=== PATIENT | female | born 1955 | race Caucasian/White ===

== ENCOUNTER 2021-12-13 13:01 | Outpatient (REF) | payer MEDICARE, SELFPAY ==
--- NOTE | ~2021-12-13 | MM_ITS ---
EXAMINATION: BONE DENSITOMETRY CLINICAL INDICATION: Osteoporosis. COMPARISON: None (current study represents initial baseline exam). TECHNIQUE: Using a [employer]HSENSORS DXA System (software version: 13.1) manufactured by [employer], dual-energy x-ray absorptiometry was performed of the lumbar spine and left hip. The images are of good technical quality. Summary results are attached. FINDINGS: AP SPINE L1-L4 (excluding L3): The data of L1-L4 has been changed to exclude the L3 vertebral body, because degenerative changes at this level may cause overestimation of lumbar spine density. BMD 0.827 g/cm2, Z-score -2.0, T-score -2.9, osteoporosis. LEFT FEMUR, NECK: BMD 0.682 g/cm2, Z-score -1.5, T-score -2.6, osteoporosis. LEFT FEMUR, TOTAL: BMD 0.848 g/cm2, Z-score -0.5, T-score -1.3, osteopenia. IDENTIFIED RISK FACTORS: Menopause, hysterectomy, bilateral oophorectomy. HISTORY OF FRACTURE: None listed. MEDICATIONS: None listed. MM/XR DEXA axial skeleton IMPRESSION: 1. DIAGNOSIS: Osteoporosis based on the lowest T-score value of -2.9 in the lumbar spine applying World Health Organization criteria. 2. 10-YEAR FRACTURE RISK PREDICTION, FRAX: According to the guidelines, FRAX calculation should only be performed on patients in the osteopenia bone density category. 3. Treatment Recommendations: NOF guidelines recommend consideration for treatment in postmenopausal women and men age 50 and older presenting with the following: -A hip or vertebral (clinical or morphometric) fracture. -T-score less than or equal to -2.5 at the femoral neck or spine after appropriate evaluation to exclude secondary causes. -Low bone mass at the hip or spine and a 10-year fracture probability by FRAX of greater than or equal to 3% for hip fracture or greater than or equal to 20% for major osteoporotic fracture based on the [place] adapted WHO algorithm. 4. Other Recommendations: All treatment decisions require clinical judgment and consideration of individual patient factors, including patient preferences, comorbidities, previous drug use, risk factors not captured in the FRAX model (e.g. frailty, falls, vitamin D deficiency, increased bone turnover, interval significant decline in bone density) and possible under or overestimation of fracture risk by FRAX. Additional medical evaluation for secondary cause of low bone mineral density may be appropriate. FUTURE SCAN RECOMMENDATION: People with diagnosed cases of osteoporosis or at high risk for fracture should have regular bone mineral density tests. For patients eligible for Medicare, routine testing is allowed once every 2 years. The testing frequency can be increased to one year for patients who have rapidly progressing disease, those who are receiving or discontinuing medical therapy to restore bone mass, or have additional risk factors.
--- NOTE | ~2021-12-13 | MM_ITS ---
EXAMINATION: MM SCREENING DIGITAL BREAST TOMOSYNTHESIS, BILATERAL CLINICAL INFORMATION: Screening. Asymptomatic. The lifetime risk of breast cancer based on the Tyrer-Cuzick Model is 3.9%. COMPARISON: Mammography: September 19, 2017 and studies dating back to August 31, 2015 TECHNIQUE: Digital breast tomosynthesis is performed in both the craniocaudal and mediolateral oblique views along with computer-aided detection (CAD). Synthesized 2D images are generated from the tomosynthesis. FINDINGS: There are scattered areas of fibroglandular density (ACR BI-RADS breast composition Category b). There are no significant masses, abnormal calcifications, or other abnormalities. MM/MM tomosynthesis screening BI IMPRESSION: There are no significant changes from prior study. ASSESSMENT: BI-RADS 1: Negative RECOMMENDATION: Routine annual mammography screening. This patient's information was entered into a reminder system with a target due date for their next mammogram.
== END 2021-12-13 13:02 | disposition home or self-care (01) ==
LOC: HO.MAMMO 13:01
PROVIDERS: Visit Provider Internal Medicine Geriatric Medicine
DX: Z12.31 Encounter for screening mammogram for malignant neoplasm of breast (principal); Z13.820 Encounter for screening for osteoporosis; Z78.0 Asymptomatic menopausal state; M81.0 Age-related osteoporosis without current pathological fracture
CPT/HCPCS: 77063; 77067; 77080

== ENCOUNTER 2022-12-14 12:57 | Outpatient (REF) | payer MEDICARE, SELFPAY ==
--- NOTE | ~2022-12-14 | MM_ITS ---
EXAMINATION: MM SCREENING DIGITAL BREAST TOMOSYNTHESIS, BILATERAL CLINICAL INFORMATION: Screening. Asymptomatic. The lifetime risk of breast cancer based on the Tyrer-Cuzick Model is 3.8%. COMPARISON: Mammography: December 13, 2021 and studies dating back to August 31, 2015 TECHNIQUE: Digital breast tomosynthesis is performed in both the craniocaudal and mediolateral oblique views along with computer-aided detection (CAD). Synthesized 2D images are generated from the tomosynthesis. FINDINGS: There are scattered areas of fibroglandular density (ACR BI-RADS breast composition Category b). There are no significant masses, abnormal calcifications, or other abnormalities. MM/MM tomosynthesis screening BI IMPRESSION: No significant changes from prior exam. ASSESSMENT: BI-RADS 1: Negative RECOMMENDATION: Routine annual mammography screening. This patient's information was entered into a reminder system with a target due date for their next mammogram.
== END 2022-12-14 12:58 | disposition home or self-care (01) ==
LOC: HO.MAMMO 12:57
PROVIDERS: PCP Internal Medicine Geriatric Medicine; Visit Provider Internal Medicine Geriatric Medicine
DX: Z12.31 Encounter for screening mammogram for malignant neoplasm of breast (principal)
CPT/HCPCS: 77063; 77067

== ENCOUNTER 2023-12-18 10:22 | Outpatient (REF) | payer OTHER, SELFPAY | END 2023-12-18 10:23 | disposition home or self-care (01) | LOC: HO.MAMMO 10:22 | PROVIDERS: PCP Internal Medicine Geriatric Medicine; Visit Provider Internal Medicine Geriatric Medicine | DX: Z12.31 Encounter for screening mammogram for malignant neoplasm of breast (principal) | CPT/HCPCS: 77063; 77067 ==

== ENCOUNTER → 2023-12-18 10:45 | Outpatient (BNV) | payer OTHER, SELFPAY | PROVIDERS: PCP Internal Medicine Geriatric Medicine; Visit Provider Radiology Diagnostic Radiology | DX: Z12.31 Encounter for screening mammogram for malignant neoplasm of breast (principal) | CPT/HCPCS: 77063; 77067 ==

== ENCOUNTER 2024-01-08 13:37 | Outpatient (REF) | payer OTHER, SELFPAY ==
--- NOTE | ~2024-01-08 | XR_ITS ---
EXAMINATION: XR CHEST 2 VIEWS CLINICAL INFORMATION: Cough of 2 weeks' duration; question pneumonia. COMPARISON: None. TECHNIQUE: Frontal and lateral views of the chest were obtained. The frontal view is somewhat rotated. FINDINGS: The heart, great vessels, pulmonary vasculature and mediastinum are normal, accounting for rotation. The lungs show no focal infiltrate, effusion or pneumothorax. There is no acute osseous abnormality. XR/XR chest 2V IMPRESSION: No active cardiopulmonary disease.
== END 2024-01-08 13:38 | disposition home or self-care (01) ==
LOC: HO.HHCX 13:37
PROVIDERS: Visit Provider Nurse Practitioner Family
DX: R05.9 Cough, unspecified (principal); R06.2 Wheezing
CPT/HCPCS: 71046

== ENCOUNTER 2024-01-22 11:49 | Outpatient (REF) | payer OTHER, SELFPAY ==
[2024-01-22 13:14] LABS: MANUAL DIFF FLAG NO
[2024-01-22 13:30] LABS: Basophils Percent Auto 0.2 % (0-2); Eosinophils Absolute Auto 0.2 X10*3/uL (0.0-0.4); Eosinophils Percent Auto 2.8 % (0-4); Hematocrit 34.7 % (37.0-47.0); Hemoglobin 11.1 g/dl (12.0-16.0); Imm Gran Abs Auto 0.02 X10*3/uL (0.00-0.03); Imm Gran Pct Auto 0.4 % (0.0-0.4); Lymphocytes Absolute Auto 0.9 X10*3/uL (1.2-4.9); Lymphocytes Percent Auto 16.2 % (20-40); Mean Corpuscular Hemoglobin 29.5 pg (27.0-33.0); Mean Corpuscular Volume 92.3 fL (80.0-98.0); Mean Platelet Volume 10.3 fL (9.4-12.3); Monocytes Absolute Auto 0.6 X10*3/uL (0.1-1.2); Monocytes Percent Auto 11.8 % (2-11); Neutrophils Absolute Auto 3.7 x10*3/uL (2.0-8.3); Neutrophils Percent Auto 68.6 % (45-73); Platelet Count 286 X10*3/uL (160-400); Red Blood Count 3.76 X10*6/uL (4.20-5.50); White Blood Count 5.4 X10*3/uL (4.8-10.8)
[2024-01-22 14:00] LABS: Anion Gap 11 (12-20); Blood Urea Nitrogen 9 mg/dL (9-16); Calcium 9.2 mg/dL (8.4-10.2); Carbon Dioxide 29 mmol/L (22-29); Chloride 103 mmol/L (96-108); Estimated Glomerular Filt Rate > 60; Glucose Random 103 mg/dL (60-115); Sodium 139 mmol/L (135-145)
== END 2024-01-22 11:50 | disposition home or self-care (01) ==
LOC: HO.HHCL 11:49
PROVIDERS: Visit Provider Internal Medicine Geriatric Medicine
DX: R05.2 Subacute cough (principal); R06.2 Wheezing
CPT/HCPCS: 36415; 80048; 85025

== ENCOUNTER 2024-04-13 09:29 | Outpatient (AMB) | payer OTHER, SELFPAY ==
--- NOTE | 2024-04-13 09:49 | MHC.OFFVIS ---
Vital Signs 04/13/24 11:04 04/13/24 11:08 Weight 199 lb 199 lb BP 141/75 H 141/75 H Blood Pressure Location Rt brachial Position Sitting Pulse 92 92 Intake Visit Reasons: Abdominal hernia Intake Note: Patient referred by PCP Dr. Heredia for abdominal hernia. Reports present for secholeveral months. Hx of lap Patient c/o: Feels a lump in the area specially with heavy lifting, onset aprox one year, reducible, denies n/v/d/c, no prior imaging, no other concerns Training Assistant Required: No Accompanied by: Self / Same As Patient Allergies oxycodone Allergy (Intermediate, Verified 04/13/24 09:53) Nausea and Vomiting aspirin Allergy (Mild, Verified 04/13/24 09:53) Hives lisinopril Allergy (Mild, Verified 04/13/24 09:53) Cough morphine Allergy (Mild, Verified 04/13/24 09:53) Wheezing tramadol Allergy (Mild, Verified 04/13/24 09:53) Unknown HPI Comments Details: Patient presents with a proximally 1 year history of right subcostal abdominal pain. She is status post laparoscopic cholecystectomy reapproximated years ago in [place]. She feels that she has a lump or swelling in the right subcostal area and is here to evaluate for possible hernia. She has otherwise tolerating a diet, having regular bowel habits. No other GI issues or complaints Chart was reviewed and patient evaluated [facility] Medical History Urticaria History of COVID-19 (~01/22/24) Essential hypertension MICHAEL-inhibitor cough Osteoarthritis of knee Urine incontinence Osteoporosis Low back pain, unspecified Obesity Depression Anxiety Surgical History Hx of total knee arthroplasty (~09/23/23) Physical Exam Vital Signs: Last Vital Signs Pulse 92 04/13/24 11:08 BP 141/75 H 04/13/24 11:08 Chest Other: Chest breath sounds bilateral GI Other: Abdomen is soft and benign. Moderately corpulent. No obvious ventral or subcostal hernias demonstrated. Well-healed laparoscopic scars. Assessment & Plan Assessment & Plan (1) Abdominal wall pain: Code(s): R10.9 - Unspecified abdominal pain Category: Surgical Plan Because of the prolonged nature of the patient's symptoms over 1 year's time, and her moderately sized abdomen, which may limit physical exam of an occult hernia, the current plan is arrangements CT scan abdomen pelvis indirect further interventions/studies based on these results. This was explained to the patient. She will see me once the scan is completed. All questions answered. Coding Level of Care Code New Pt Level 4 (12391) Diagnoses Abdominal wall pain R10.9
[2024-04-13 11:04] VITALS: BP 141/75; PULSE 92
[2024-04-13 11:08] VITALS: BP 141/75; PULSE 92
== END 2024-04-13 11:28 | disposition home or self-care (01) ==
PROVIDERS: PCP Internal Medicine Geriatric Medicine; Visit Provider Surgery
DX: R10.9 Unspecified abdominal pain (principal)
CPT/HCPCS: 99203

== ENCOUNTER → 2024-04-13 09:29 | Outpatient (BNVA) | payer OTHER, SELFPAY | PROVIDERS: PCP Internal Medicine Geriatric Medicine; Visit Provider Surgery | DX: R10.9 Unspecified abdominal pain (principal); Z90.49 Acquired absence of other specified parts of digestive tract | CPT/HCPCS: 36415; 85025; 99202 ==

== ENCOUNTER 2024-04-13 11:48 | Outpatient (REF) | payer OTHER, SELFPAY ==
[2024-04-13 13:34] LABS: MANUAL DIFF FLAG NO
[2024-04-13 13:44] LABS: Basophils Percent Auto 0.5 % (0-2); Eosinophils Absolute Auto 0.2 X10*3/uL (0.0-0.4); Eosinophils Percent Auto 2.3 % (0-4); Hematocrit 35.3 % (37.0-47.0); Hemoglobin 11.4 g/dl (12.0-16.0); Imm Gran Abs Auto 0.05 X10*3/uL (0.00-0.03); Imm Gran Pct Auto 0.7 % (0.0-0.4); Lymphocytes Absolute Auto 1.5 X10*3/uL (1.2-4.9); Lymphocytes Percent Auto 20.1 % (20-40); Mean Corpuscular HGB Conc 32.3 g/dl (31.0-35.0); Mean Corpuscular Hemoglobin 30.3 pg (27.0-33.0); Mean Corpuscular Volume 93.9 fL (80.0-98.0); Mean Platelet Volume 10.7 fL (9.4-12.3); Monocytes Absolute Auto 0.8 X10*3/uL (0.1-1.2); Monocytes Percent Auto 10.6 % (2-11); Neutrophils Absolute Auto 4.9 x10*3/uL (2.0-8.3); Neutrophils Percent Auto 65.8 % (45-73); Platelet Count 314 X10*3/uL (160-400); Red Blood Count 3.76 X10*6/uL (4.20-5.50); Red Cell Distribution Width 14.4 % (11.0-16.0); White Blood Count 7.5 X10*3/uL (4.8-10.8)
== END 2024-04-13 11:49 | disposition home or self-care (01) ==
LOC: HO.HHCL 11:48
PROVIDERS: Visit Provider Internal Medicine Geriatric Medicine
DX: Z13.89 Encounter for screening for other disorder (principal)
CPT/HCPCS: 36415; 85025

== ENCOUNTER 2024-06-08 06:24 | Outpatient (REF) | payer OTHER, SELFPAY ==
--- NOTE | ~2024-06-08 | CT_ITS ---
EXAMINATION: CT ABDOMEN AND PELVIS WITH CONTRAST CLINICAL INFORMATION: Unspecified abdominal pain COMPARISON: None available. TECHNIQUE: Multidetector volumetric images were obtained from the superior aspect of the liver through the pubic symphysis following administration 85 mL of Omnipaque 350 intravenous contrast. Sagittal and coronal reformatted images were obtained on the technologist's workstation. This CT examination was performed using dose optimization techniques as appropriate, variously including the following: *Automated exposure control *Adjustment of mA and/or kV according to patient size (this includes techniques or standardized protocols for targeted exams where dose is matched to indication/reason for exam; i.e. extremities or head) *Use of iterative reconstruction technique DLP: 620 mGy-cm FINDINGS: Visualized lung bases demonstrate mild dependent atelectasis. The liver is enlarged and demonstrates diffusely decreased attenuation. The gallbladder is surgically absent. There is mild fatty atrophy of the pancreas. The spleen is normal in size. Small inferior splenule. There is a 2.6 cm nonspecific right adrenal lesion. The left adrenal gland is unremarkable. Symmetrically enhancing kidneys. There is no hydronephrosis of either kidney. Debris-filled stomach. Normal caliber loops of small and large bowel. Mild colonic diverticulosis without CT evidence to suggest active diverticulitis. Normal appendix. Normal caliber abdominal aorta. No retroperitoneal lymphadenopathy. The bladder is normal in appearance. Uterus is surgically absent. No gross free pelvic fluid. No inguinal lymphadenopathy. Degenerative changes of the spine. CT/CT abdomen pelvis w IV con IMPRESSION: 1. Hepatomegaly with diffusely decreased liver attenuation suggesting hepatic steatosis. Correlation with liver enzymes recommended. 2. Mild colonic diverticulosis without CT evidence to suggest active diverticulitis. 3. 2.6 cm nonspecific right adrenal lesion. This can be further evaluated with adrenal protocol CT imaging as clinically indicated. Fleischner guidelines were followed.
[2024-06-08] MEDS: iohexoL 350 MG/ML 100 ML INFUS..BTL 85 ML IV (08:51)
[2024-06-08] MEDS: Barium Sulfate Oral (Berry) 450 ML ORAL.SUSP 900 ML PO (08:52)
[2024-06-10 11:01] LABS: Creatinine POC 0.5 mg/dL (0.5-1.4); GFR POC > 60
== END 2024-06-08 06:25 | disposition home or self-care (01) ==
LOC: HO.CT 06:24
PROVIDERS: PCP Internal Medicine Geriatric Medicine; Visit Provider Surgery
DX: R10.9 Unspecified abdominal pain (principal); K43.9 Ventral hernia without obstruction or gangrene
CPT/HCPCS: 74177; 82565; Q9967

== ENCOUNTER 2024-06-17 09:15 | Outpatient (AMB) | payer OTHER, SELFPAY ==
--- NOTE | 2024-06-17 09:15 | MHC.OFFVIS ---
Vital Signs 06/17/24 09:21 Weight 196 lb BP 147/74 H Blood Pressure Location Rt brachial Position Sitting Pulse 89 Intake Visit Reasons: CT scan results, following ventral hernia Intake Note: Patient here to discuss Abd/pelvis CT scan results from 06-08-24. Cuff Turner Required: Yes Accompanied by: Self / Same As Patient Allergies oxycodone Allergy (Intermediate, Verified 06/17/24 09:20) Nausea and Vomiting aspirin Allergy (Mild, Verified 06/17/24 09:20) Hives lisinopril Allergy (Mild, Verified 06/17/24 09:20) Cough morphine Allergy (Mild, Verified 06/17/24 09:20) Wheezing tramadol Allergy (Mild, Verified 06/17/24 09:20) Unknown HPI Comments Details: Patient presents for follow-up. CT scan demonstrated no evidence of abdominal wall pathology. Incidental finding was of an adrenal mass. Patient was symptoms are essentially status quo. But she is tolerating her diet, she is having regular bowel habits. She has no activity restrictions. [facility] Medical History Urticaria History of COVID-19 (~01/22/24) Essential hypertension MICHAEL-inhibitor cough Osteoarthritis of knee Urine incontinence Osteoporosis Low back pain, unspecified Obesity Depression Anxiety Surgical History Hx of total knee arthroplasty (~09/23/23) Physical Exam Vital Signs: Last Vital Signs Pulse 89 06/17/24 09:21 BP 147/74 H 06/17/24 09:21 GI Other: Abdomen soft, moderately corpulent, benign. Right upper quadrant mild tenderness, Again no obvious hernia demonstrated and this was confirmed by CT scan. Assessment & Plan Assessment & Plan (1) Abdominal wall pain: Code(s): R10.9 - Unspecified abdominal pain Category: Surgical (2) Adrenal mass: Code(s): E27.8 - Other specified disorders of adrenal gland Category: Surgical Plan Incidental finding of an adrenal mass. From a surgical standpoint, patient is stable in no acute surgical issues. Arrangements were made for endocrine consultation regarding adrenal mass. Arrangements were made for this. Coding Level of Care Code Est Pt Level 4 (02781) Diagnoses Abdominal wall pain R10.9 Adrenal mass E27.8
[2024-06-17 09:21] VITALS: BP 147/74; PULSE 89
== END 2024-06-17 09:34 | disposition home or self-care (01) ==
PROVIDERS: PCP Internal Medicine Geriatric Medicine; Visit Provider Surgery
DX: R10.9 Unspecified abdominal pain (principal); E27.8 Other specified disorders of adrenal gland
CPT/HCPCS: 99213

== ENCOUNTER → 2024-06-17 09:15 | Outpatient (BNVA) | payer OTHER, SELFPAY | PROVIDERS: PCP Internal Medicine Geriatric Medicine; Visit Provider Surgery | DX: R10.9 Unspecified abdominal pain (principal); E27.8 Other specified disorders of adrenal gland | CPT/HCPCS: 99212 ==

== ENCOUNTER 2024-06-24 09:40 | Outpatient (AMB) | payer OTHER, SELFPAY ==
--- NOTE | 2024-06-24 09:42 | MHC.OFFVIS ---
Vital Signs 06/24/24 09:43 Weight 196 lb BP 128/74 Blood Pressure Location Lt brachial Position Sitting Pulse 85 Pulse Source Pulse Oximeter Intake Visit Reasons: Other specified disorders of adrenal gland/LVM Intake Note: New patient present today for other specified disorders of adrenal gland. Computer Technology Teacher Required: Yes Computer Technology Teacher Language: Parts Control Clerk Services: Computer Technology Teacher Present Computer Technology Teacher Name: Noemi Information Interpreted: non-clinical & clinical Accompanied by: Self / Same As Patient Allergies oxycodone Allergy (Intermediate, Verified 06/24/24 09:47) Nausea and Vomiting aspirin Allergy (Mild, Verified 06/24/24 09:47) Hives lisinopril Allergy (Mild, Verified 06/24/24 09:47) Cough morphine Allergy (Mild, Verified 06/24/24 09:47) Wheezing tramadol Allergy (Mild, Verified 06/24/24 09:47) Unknown Medication List - Last Reconciled 06/24/24 by Miya Rachel MD albuterol sulfate 90 mcg/actuation 2 inhalations inhalation Q4H PRN alendronate 70 mg PO QWEEK amlodipine 5 mg PO DAILY clotrimazole 1% 1 appl topical BID famotidine 20 mg PO BID fluticasone furoate 50 mcg/actuation inhalation mometasone 100 mcg/actuation (Asmanex HFA) 2 puffs inhalation BID montelukast 10 mg PO BEDTIME omeprazole 20 mg PO BID triamcinolone acetonide 0.1% 1 appl topical BID HPI Comments Details: 69-year-old female coming in today for initial evaluation of adrenal incidentaloma. Past medical history significant for Osteoporosis, Obesity, Depression and Anxiety, hypertension. May [address] scan of abd for abd pain showed 2.6 cm right adrenal adenoma Does complain of palpitations, intermittent, usually with anxiety Denies episodes of concurrent pallor, headaches, diaphoresis, pallor HTN 3 years, doesnt check at home but in clinic today no easy bruising, no proximal muscle weakness no diabetes mellitus, no fractures but has osteoporosis on fosamax no hirsuitism no acne Thinks she has gained weight cant quantify Family history Father: lung cancer no MT or stroke Past surgical history Lap cholecystectomy Knee arthroplasty Social history No smoking No alcohol No drug use 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 Pulmonary: No SOB GI:has inetrmittent chronic abdominal pain, no nausea or vomiting, no anorexia, no blood in stool : no burning micturition, dysuria or increase in urinary frequency Neurologic: No dizziness, no weakness in extremities MSK: has back pain Physical Exam Vital Signs: Last Vital Signs Pulse 85 06/24/24 09:43 BP 128/74 06/24/24 09:43 Const Other: General: sitting comfortably in no acute distress HEENT: normocephalic/atraumatic,, moist oral mucosa Neck: supple, symmetrical, no thyromegaly , has dorsocervical butno supraclavicular fat pads Cardiac: normal heart sounds Pulm: normal breath sounds B/L, no added breath sounds Abd: not distended, no tenderness, no stria Extremities: no edema, no signs of myxedema Neuro: AAO x3, Speech: normal, no facial droop, moving all 4 extremities Skin: no rash Foot exam: intact sensation to monofilament, intact pulses, intact vibration Results Reviewed Results Reviewed: Laboratory Tests 01/22/24 11:53 Sodium 139 Potassium 4.0 Creatinine 0.62 Estimated GFR > 60 CT ABDOMEN AND PELVIS WITH CONTRAST May 2024 CLINICAL INFORMATION: Unspecified abdominal pain COMPARISON: None available. TECHNIQUE: Multidetector volumetric images were obtained from the superior aspect of the liver through the pubic symphysis following administration 85 mL of Omnipaque 350 intravenous contrast. Sagittal and coronal reformatted images were obtained on the technologist's workstation. This CT examination was performed using dose optimization techniques as appropriate, variously including the following: *Automated exposure control *Adjustment of mA and/or kV according to patient size (this includes techniques or standardized protocols for targeted exams where dose is matched to indication/reason for exam; i.e. extremities or head) *Use of iterative reconstruction technique DLP: 620 mGy-cm FINDINGS: Visualized lung bases demonstrate mild dependent atelectasis. The liver is enlarged and demonstrates diffusely decreased attenuation. The gallbladder is surgically absent. There is mild fatty atrophy of the pancreas. The spleen is normal in size. Small inferior splenule. There is a 2.6 cm nonspecific right adrenal lesion. The left adrenal gland is unremarkable. Symmetrically enhancing kidneys. There is no hydronephrosis of either kidney. Debris-filled stomach. Normal caliber loops of small and large bowel. Mild colonic diverticulosis without CT evidence to suggest active diverticulitis. Normal appendix. Normal caliber abdominal aorta. No retroperitoneal lymphadenopathy. The bladder is normal in appearance. Uterus is surgically absent. No gross free pelvic fluid. No inguinal lymphadenopathy. Degenerative changes of the spine. CT/CT abdomen pelvis w IV con IMPRESSION: 1. Hepatomegaly with diffusely decreased liver attenuation suggesting hepatic steatosis. Correlation with liver enzymes recommended. 2. Mild colonic diverticulosis without CT evidence to suggest active diverticulitis. 3. 2.6 cm nonspecific right adrenal lesion. This can be further evaluated with adrenal protocol CT imaging as clinically indicated. Fleischner guidelines were followed. Assessment & Plan Assessment & Plan (1) Adrenal incidentaloma: Code(s): E27.8 - Other specified disorders of adrenal gland Category: Medical Plan: 69-year-old female coming in today for initial evaluation right adrenal incidentaloma diagonals 9 CT scan in 05/30/2024 when she was undergoing evaluation for abdominal pain. Our first concern is to be sure that this is not an adrenal cortical carcinoma. ?Fortunately adrenal cortical carcinomas are exceedingly rare. ?However they do carry with them a very poor prognosis.?Given clinical history with no deterioration in overall health; I have low suspicion for adrenocortical carcinoma to start with. ?Our next step will be to repeat the imaging of his adrenal gland with?adrenal washout protocol to comment on Hounsfield units and washout. ?? Another concern of adrenal masses is that they might be metastatic disease from another primary malignancy. ?This seems unlikely in her case. ?She is a lifelong non-smoker. ?A renal cancer which can metastasize to the adrenal glands probably would have been identified on his initial imaging study. ?Usually metastatic disease to the adrenal glands goes to both adrenal glands. ?Finally there is no evidence of breast cancer which?may?metastasize to the adrenal glands?as well. ? Most adrenal masses are noncancerous or benign adrenal adenomas. ?However they can occasionally be functional and the hormones that are produced can cause clinical problems.??She has not been screened for any hormonal excess; although low clinical suspicion for pheochromocytoma; given the adrenal adenoma in question is greater than 1 cm and we currently do not have Hounsfield units reading on it; I will err on the side of caution and screen with plasma free metanephrines with her blood work today. ? He does not have hypertension or history of hypokalemia and hence at this time aldosterone and plasma renin activity testing may be deferred. ? We will check baseline labs of cortisol, ACTH, DHEAS and also do 1 mg overnight dexamethasone suppression test. she has no clinical features of Tin syndrome. She does have osteoporosis, however no recent fractures. Her blood pressure is well controlled. No history of diabetes. ? The greatest likelihood is that this will be a nonfunctional benign adrenal adenoma that does not need to be removed. ?However we want to be careful that we have excluded all the other possibilities?first.? Plan: -ordered cause disorder, acth, DHEA-S, 1 mg overnight dexamethasone suppression test -ordered plasma metanephrines, normetanephrines, aldosterone, renin, BMP -ordered CT scan with adrenal protocol -follow-up in 8 weeks once testing is done ? Thank you for the consultation. ?Endocrinology team will continue to follow; please call with any questions. Plan see above Orders: Orders DHEA Sulfate Today E27.8 - Other specified disorders of adrenal gland Cortisol Random Today E27.8 - Other specified disorders of adrenal gland Renin Today E27.8 - Other specified disorders of adrenal gland Metanephrines, Plasma Today E27.8 - Other specified disorders of adrenal gland Aldosterone Today E27.8 - Other specified disorders of adrenal gland Basic Metabolic Panel Today E27.8 - Other specified disorders of adrenal gland Adrenocorticotropic Hormone Today E27.8 - Other specified disorders of adrenal gland CT adrenal wo/w IV con Today E27.8 - Other specified disorders of adrenal gland Cortisol Random 06/26/24 E27.8 - Other specified disorders of adrenal gland Dexamethasone 06/26/24 E27.8 - Other specified disorders of adrenal gland Medications: New dexamethasone Take 1 pill at 11 pm and go for blood work next morning at 8 AM 1 mg PO ONCE 1 tab 0RF NS Patient Instructions: Por favor hazte an?lisis de romero hoy y luego, en mindy fecha posterior, completar la prueba de supresi?n con dexametasona, que es el an?lisis de romero con la p?ldora. Prueba de supresi?n con dexametasona Me gustar?a que me hicieran mindy prueba de supresi?n con dexametasona para descartar el s?ndrome de Tin. Miranda? mindy pastilla de dexametasona de 1 mg a las 11 p.m. y luego le extraer?n romero para medir el cortisol a las 8 a.m. de la ma?anjel siguiente. Es importante asegurarse de miranda la dexametasona a las 11 p.m. y hacerse el an?lisis de romero lo m?s cerca posible de las 8 a.m. tambi?n hacer tomograf?a computarizada hacer un seguimiento despu?s de la prueba para discutir los resultados In [place] Please do blood work today and then at a later date complete the dexamethasone suppression test which is the blood work with the pill Dexamethasone suppression test I would like you to do a dexamethasone suppression test to rule out Cushings syndrome. You will take a 1 mg pill of dexamethasone at 11 PM and then have a blood draw for cortisol at 8AM the next morning. It is important to make sure you take the dexamethasone at 11 PM and have the blood test as close to 8AM as possible. also do CT scan follow up after testing to discuss results Coding Level of Care Code New Pt Level 4 (04850) Diagnoses Adrenal incidentaloma E27.8
[2024-06-24 09:43] VITALS: BP 128/74; PULSE 85
== END 2024-06-24 10:33 | disposition home or self-care (01) ==
PROVIDERS: PCP Internal Medicine Geriatric Medicine; Visit Provider Student in an Organized Health Care Education/Training Program
DX: E27.8 Other specified disorders of adrenal gland (principal)
CPT/HCPCS: 99204

== ENCOUNTER → 2024-06-24 09:40 | Outpatient (BNVA) | payer OTHER, SELFPAY | PROVIDERS: PCP Internal Medicine Geriatric Medicine; Visit Provider Student in an Organized Health Care Education/Training Program | DX: E27.8 Other specified disorders of adrenal gland (principal) | CPT/HCPCS: 99202 ==

== ENCOUNTER 2024-07-02 13:24 | Outpatient (AMB) | payer OTHER, SELFPAY ==
--- NOTE | 2024-07-02 13:28 | A.OFFVIS_ITS ---
Vital Signs 07/02/24 13:30 Height 4 ft 11 in Weight 198 lb BMI 40.0 BP 128/70 Blood Pressure Location Lt brachial Position Sitting Pulse 89 Pulse Source Pulse Oximeter Pulse Oximetry (%) 99 Oxygen Delivery Method Room Air Intake Visit Reasons: chronic cough Adjutant General Required: No Allergies oxycodone Allergy (Intermediate, Verified 07/02/24 13:31) Nausea and Vomiting aspirin Allergy (Mild, Verified 07/02/24 13:31) Hives lisinopril Allergy (Mild, Verified 07/02/24 13:31) Cough morphine Allergy (Mild, Verified 07/02/24 13:31) Wheezing tramadol Allergy (Mild, Verified 07/02/24 13:31) Unknown HPI Comments Details: The patient is here for pulmonary evaluation. The patient is a 69 year woman with a known history of in adrenal adenoma who presents here after developing worsening cough. The patient states that several months ago she developed a viral syndrome. After she continued having a cough. The cough is moderate severity. Was congested in nature with yellow phlegm. She had been evaluated about 4 months ago and she was given antibiotics in addition to respiratory inhalers. Although only partially helpful. In the meantime she did have a chest x-ray which I personally reviewed demonstrating no acute disease. She has not had any pulmonary function studies. She is not aware of any allergies and she does not have any pets. No significant changes in her household. On examination she does have some rhonchi. Specially when she coughs. She does have an about of bronchitis. It may be asthmatic bronchitis or reactive airway disease. Will go start her on maintenance therapy to see if we can improve her symptoms and treat her with doxycycline case she has a smoldering infection. Will have her follow-up in 2-3 months after her PFTs. [facility] Medical History (Updated 07/02/24 @ 23:04 by Fabricio Lauren MD) Dyspnea Chronic cough Adrenal incidentaloma Urticaria History of COVID-19 (~01/22/24) Essential hypertension MICHAEL-inhibitor cough Osteoarthritis of knee Urine incontinence Osteoporosis Low back pain, unspecified Obesity Depression Anxiety Surgical History Hx of total knee arthroplasty (~09/23/23) Review of Systems Const Denies fever(s) Eyes Reports no additional complaints ENT Reports nasal congestion and Reports nasal discharge Card Denies chest pain, Denies palpitations and Reports dyspnea on exertion Resp Reports cough, Reports dyspnea on exertion and Reports wheezing GI Denies bloating Musc Reports no additional complaints Skin/Breast Denies rash Endo Denies palpitations Jose L/Lymph Denies lymphadenopathy Aller/Immun Reports wheezing Physical Exam Vital Signs: Last Vital Signs Pulse 89 07/02/24 13:30 BP 128/70 07/02/24 13:30 Pulse Ox 99 07/02/24 13:30 Oxygen Delivery Method Room Air 07/02/24 13:30 BMI result Body Mass Index 40.0 Const General: comfortable HEENT Head: Yes normocephalic Neck Neck: Yes supple Chest Chest palpation & inspection: normal inspection of the chest Resp Effort & Inspection: normal respiratory effort and prolonged expiratory phase Auscultation: no rales, no rhonchi, no wheezes and diminished lung sounds Cardio Heart sounds: S1 normal heart sound present and S2 normal heart sound present GI Palpation (GI): Soft to palpation Skin General skin exam: no rashes or lesions noted Extrem General: Yes no clubbing, cyanosis or edema Assessment & Plan Assessment & Plan (1) Chronic cough: Code(s): R05.3 - Chronic cough Category: Medical (2) Dyspnea: Code(s): R06.00 - Dyspnea, unspecified Category: Medical Qualifiers: Dyspnea type: dyspnea on exertion Qualified Code(s): R06.09 - Other forms of dyspnea (3) Bronchitis: Code(s): J40 - Bronchitis, not specified as acute or chronic Category: Medical Plan Start Symbicrt VANIA as needed start doxycycline PFTs F/U 2-3 months Orders: Orders PFT pulmonary function test Today J40 - Bronchitis, not specified as acute or chronic Medications: New budesonide-formoterol 160-4.5 mcg/actuation (Symbicort) 2 puffs inhalation BID 30 days 10.2 grams 11RF J44.89 - Other specified chronic obstructive pulmonary disease doxycycline hyclate 100 mg PO BID 10 days 20 caps 0RF Coding Level of Care Code New Pt Level 4 (24010) Diagnoses Chronic cough R05.3 Dyspnea on exertion R06.09 Dyspnea type: dyspnea on exertion Bronchitis J40 Time Spent (min) 30
[2024-07-02 13:30] VITALS: BP 128/70; PULSE 89; O2SAT 99; BMI 40.0
== END 2024-07-02 13:49 | disposition home or self-care (01) ==
PROVIDERS: PCP Internal Medicine Geriatric Medicine; Referring Provider Internal Medicine Geriatric Medicine; Visit Provider Hospitalist
DX: R05.3 Chronic cough (principal); R06.09 Other forms of dyspnea; J40 Bronchitis, not specified as acute or chronic
CPT/HCPCS: 99204

== ENCOUNTER → 2024-07-02 13:24 | Outpatient (BNVA) | payer OTHER, SELFPAY | PROVIDERS: PCP Internal Medicine Geriatric Medicine; Referring Provider Internal Medicine Geriatric Medicine; Visit Provider Hospitalist | DX: J40 Bronchitis, not specified as acute or chronic (principal); J44.89 Other specified chronic obstructive pulmonary disease; R06.00 Dyspnea, unspecified | CPT/HCPCS: 99202 ==

== ENCOUNTER 2024-07-14 08:19 | Outpatient (REF) | payer OTHER, SELFPAY ==
[2024-07-14 10:58] LABS: Anion Gap 13 (12-20); Blood Urea Nitrogen 18 mg/dL (9-16); Calcium 9.5 mg/dL (8.4-10.2); Carbon Dioxide 27 mmol/L (22-29); Chloride 103 mmol/L (96-108); Estimated Glomerular Filt Rate > 60; Glucose Random 104 mg/dL (60-115); Potassium 3.7 mmol/L (3.3-5.1); Sodium 139 mmol/L (135-145)
[2024-07-14 11:09] LABS: Cortisol Random 8.7 ug/dL
[2024-07-15 18:44] LABS: DHEA Sulfate 58 mcg/dL (9-118)
[2024-07-17 09:59] LABS: Adrenocorticotropic Hormone 11 pg/mL (6-50)
[2024-07-20 08:54] LABS: Metanephrine, Free <25 pg/mL (<=57); Normetanephrines, Free 90 pg/mL (<=148); Total Metanephrine, Free 90 pg/mL (<=205)
[2024-07-20 13:54] LABS: Renin 1.02 ng/mL/h (0.25-5.82)
[2024-07-29 14:59] LABS: Dexamethasone <20 ng/dL
== END 2024-07-14 08:20 | disposition home or self-care (01) ==
LOC: HO.LAB 08:19
PROVIDERS: PCP Internal Medicine Geriatric Medicine; Visit Provider Student in an Organized Health Care Education/Training Program
DX: E27.8 Other specified disorders of adrenal gland (principal)
CPT/HCPCS: 36415; 80048; 80299; 82024; 82088; 82533; 82627; 83835; 84244

== ENCOUNTER 2024-08-17 07:52 | Outpatient (REF) | payer OTHER, SELFPAY ==
--- NOTE | ~2024-08-17 | XR_ITS ---
EXAMINATION: XR CHEST CLINICAL INFORMATION: Cough. Bronchitis. COMPARISON: Chest radiograph dated 01/08/2024. TECHNIQUE: 2 views of the chest were obtained. FINDINGS: The lungs are clear. The cardiomediastinal silhouette is normal in size. There is no pleural effusion or pneumothorax. No acute osseous abnormality. XR/XR chest 2V IMPRESSION: No acute cardiopulmonary findings. Electronically signed by: Gio Bee MD 08/17/2024 01:32 PM EDT
[2024-08-17 08:38] LABS: Blood Urea Nitrogen 15 mg/dL (9-16); Estimated Glomerular Filt Rate > 60
[2024-08-17 09:31] LABS: Cortisol Random 1.4 ug/dL
[2024-08-21 05:53] LABS: Adrenocorticotropic Hormone <5 pg/mL (6-50)
[2024-08-27 08:18] LABS: Dexamethasone 533 ng/dL
== END 2024-08-17 07:53 | disposition home or self-care (01) ==
LOC: HO.LAB 07:52
PROVIDERS: PCP Internal Medicine Geriatric Medicine; Visit Provider Student in an Organized Health Care Education/Training Program
DX: E27.8 Other specified disorders of adrenal gland (principal); J40 Bronchitis, not specified as acute or chronic
CPT/HCPCS: 36415; 71046; 80299; 82024; 82533; 82565; 84520

== ENCOUNTER 2024-08-20 09:18 | Outpatient (REF) | payer OTHER, SELFPAY | END 2024-08-20 09:19 | disposition home or self-care (01) | LOC: HO.10HDL 09:18 | PROVIDERS: Visit Provider Student in an Organized Health Care Education/Training Program | DX: E27.8 Other specified disorders of adrenal gland (principal) | CPT/HCPCS: 99212 ==

== ENCOUNTER 2024-08-20 09:23 | Outpatient (AMB) | payer OTHER, SELFPAY ==
[2024-08-20 09:25] VITALS: BP 124/86; PULSE 79; BMI 40.3
--- NOTE | 2024-08-20 09:25 | A.OFFVIS_ITS ---
Vital Signs 08/20/24 09:25 Height 4 ft 11 in Weight 199 lb 8.293 oz BMI 40.3 BP 124/86 Blood Pressure Location Lt brachial Position Sitting Pulse 79 Pulse Source Pulse Oximeter Intake Visit Reasons: Other specified disorders of adrenal gland-lvm Intake Note: Patient present today for follow up visit to other specified disorders of adrenal gland. Front Desk Team Member Required: Yes Front Desk Team Member Language: Special Events Manager Services: Front Desk Team Member Present Front Desk Team Member Name: Shiv Rene Information Interpreted: non-clinical & clinical Accompanied by: Self / Same As Patient Allergies oxycodone Allergy (Intermediate, Verified 08/20/24 09:31) Nausea and Vomiting aspirin Allergy (Mild, Verified 08/20/24 09:31) Hives lisinopril Allergy (Mild, Verified 08/20/24 09:31) Cough morphine Allergy (Mild, Verified 08/20/24 09:31) Wheezing tramadol Allergy (Mild, Verified 08/20/24 09:31) Unknown HPI Comments Details: 69-year-old female coming in today for follow up of adrenal incidentaloma. Past medical history significant for Osteoporosis, Obesity, Depression and Anxiety, hypertension. HPI from prior visit May [address] scan of abd for abd pain showed 2.6 cm right adrenal adenoma, I reviewed the images of the CT scan myself which show right adrenal adenoma, looks homogeneous in appearance, regular in shape, appearance looks like an adenoma. Does complain of palpitations, intermittent, usually with anxiety Denies episodes of concurrent pallor, headaches, diaphoresis, pallor HTN 3 years, doesnt check at home but in clinic today normal no easy bruising, no proximal muscle weakness no diabetes mellitus, no fractures but has osteoporosis on fosamax no hirsuitism no acne Thinks she has gained weight cant quantify Patient had blood work done 07/14/2024 which showed normal metanephrine and normetanephrine levels, aldosterone level was within normal range, renin is not suppressed, baseline levels of cortisol/ACTH not concerning. She did dexamethasone suppression test on 08/17/2024, cortisol level of 1.4 is within normal range. Dexamethasone level is not back yet.. She has CT scan with adrenal protocol scheduled for 08/25/2024. 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 Pulmonary: No SOB GI:No abdominal pain, no nausea or vomiting, no anorexia, no blood in stool : no burning micturition, dysuria or increase in urinary frequency Physical exam General: sitting comfortably in no acute distress HEENT: normocephalic/atraumatic, moist oral mucosa Neck: supple, symmetrical, no thyromegaly , no dorsocervical or supraclavicular fat pads Cardiac: normal heart sounds Pulm: normal breath sounds B/L, no added breath sounds Abd: not distended, no tenderness Extremities: no edema, no signs of myxedema PFSH Medical History (Updated 07/02/24 @ 23:04 by Fabricio Lauren MD) Dyspnea Chronic cough Adrenal incidentaloma Urticaria History of COVID-19 (~01/22/24) Essential hypertension MICHAEL-inhibitor cough Osteoarthritis of knee Urine incontinence Osteoporosis Low back pain, unspecified Obesity Depression Anxiety Surgical History Hx of total knee arthroplasty (~09/23/23) Results Reviewed Results Reviewed: Laboratory Tests 01/22/24 11:53 Sodium 139 Potassium 4.0 Creatinine 0.62 Estimated GFR > 60 Laboratory Tests 07/14/24 08/17/24 09:36 08:06 Renin 1.02 Aldosterone 3 DHEA Sulfate 58 Random Cortisol 8.7 1.4 ACTH 11 Pending Plasma Free Metaneph <25 Plasma Free Normeta 90 Plas Total Metaneph 90 Dexamethasone <[address] ABDOMEN AND PELVIS WITH CONTRAST May 2024 CLINICAL INFORMATION: Unspecified abdominal pain COMPARISON: None available. TECHNIQUE: Multidetector volumetric images were obtained from the superior aspect of the liver through the pubic symphysis following administration 85 mL of Omnipaque 350 intravenous contrast. Sagittal and coronal reformatted images were obtained on the technologist's workstation. This CT examination was performed using dose optimization techniques as appropriate, variously including the following: *Automated exposure control *Adjustment of mA and/or kV according to patient size (this includes techniques or standardized protocols for targeted exams where dose is matched to indication/reason for exam; i.e. extremities or head) *Use of iterative reconstruction technique DLP: 620 mGy-cm FINDINGS: Visualized lung bases demonstrate mild dependent atelectasis. The liver is enlarged and demonstrates diffusely decreased attenuation. The gallbladder is surgically absent. There is mild fatty atrophy of the pancreas. The spleen is normal in size. Small inferior splenule. There is a 2.6 cm nonspecific right adrenal lesion. The left adrenal gland is unremarkable. Symmetrically enhancing kidneys. There is no hydronephrosis of either kidney. Debris-filled stomach. Normal caliber loops of small and large bowel. Mild colonic diverticulosis without CT evidence to suggest active diverticulitis. Normal appendix. Normal caliber abdominal aorta. No retroperitoneal lymphadenopathy. The bladder is normal in appearance. Uterus is surgically absent. No gross free pelvic fluid. No inguinal lymphadenopathy. Degenerative changes of the spine. CT/CT abdomen pelvis w IV con IMPRESSION: 1. Hepatomegaly with diffusely decreased liver attenuation suggesting hepatic steatosis. Correlation with liver enzymes recommended. 2. Mild colonic diverticulosis without CT evidence to suggest active diverticulitis. 3. 2.6 cm nonspecific right adrenal lesion. This can be further evaluated with adrenal protocol CT imaging as clinically indicated. Fleischner guidelines were followed. Assessment & Plan Assessment & Plan (1) Adrenal incidentaloma: Code(s): E27.8 - Other specified disorders of adrenal gland Category: Medical Plan: 69-year-old female here for follow up of right adrenal incidentaloma measuering 2.[address] scan in 05/30/2024 when she was undergoing evaluation for abdominal pain. I reviewed the images of the CT scan myself which show right adrenal adenoma, looks homogeneous in appearance, regular in shape, appearance looks like an adenoma. Patient had blood work done 07/14/2024 which showed normal metanephrine and normetanephrine levels, aldosterone level was within normal range, renin is not suppressed, baseline levels of cortisol/ACTH not concerning. She did 1 mg dexamethasone suppression test on 08/17/2024, cortisol level of 1.4 is within normal range. Dexamethasone level is not back yet.. She has CT scan with adrenal protocol scheduled for 08/25/2024. she has no clinical features of Henning syndrome. She does have osteoporosis, however no recent fractures. Her blood pressure is well controlled. No history of diabetes. ? I explained to the patient that This is nonfunctional adrenal adenoma that does not need to be removed. ?The CT scan with adrenal protocol we will further help delineate the benign features. If the CT scan with adrenal protocol agrees with lipid rich adenoma, we can plan to repeat imaging in 1 year to ensure that the size of the nodule is stable. I will order this depending on the results of her CT scan. I will follow arrange follow up in 1 year, that time we will also assess clinically whether she needs any repeat testing. The 1 mg dexamethasone suppression test can be repeated depending on clinical scenario. Plan: -follow up results of CT scan with adrenal protocol -follow-up in1 year with repeat imaging ? Plan see above Patient Instructions: Your blood work is normal so far Get CT scan done We will let you know about the results via phone I will see you back next year Tu an?lisis de romero es normal hasta el momento. H?gase mindy tomograf?a computarizada Te informaremos de los resultados v?a telef?kamilla. Te obi? el a?o que viene Coding Level of Care Code Est Pt Level 3 (24587) Diagnoses Adrenal incidentaloma E27.8
== END 2024-08-20 09:49 | disposition home or self-care (01) ==
PROVIDERS: PCP Internal Medicine Geriatric Medicine; Visit Provider Student in an Organized Health Care Education/Training Program
DX: E27.8 Other specified disorders of adrenal gland (principal)
CPT/HCPCS: 99213

== ENCOUNTER 2024-08-25 10:32 | Outpatient (REF) | payer OTHER, SELFPAY ==
--- NOTE | ~2024-08-25 | CT_ITS ---
. EXAMINATION: CT adrenal without and with IV contrast. CLINICAL INFORMATION: Disorders of the adrenal gland. COMPARISON: CT abdomen pelvis dated June 08, 2024. TECHNIQUE: Multidetector volumetric images were obtained from the superior aspect of the liver/lung bases to the iliac crest without and following the IV contrast administration during the portal venous and delayed phases of 85 cc of Omnipaque 350 strength without reported immediate complications. Sagittal and coronal reformatted images were obtained on the technologist's workstation. This CT examination was performed using dose optimization techniques as appropriate, variously including the following: Automatic exposure control Adjustment of MA and/or KV according to patient size Use of interactive reconstruction's technique. DLP: 529 mGy-cm. FINDINGS: submitted for interpretation on October 21, 2024. Right adrenal gland: There is a well-defined 2.6 x 1.7 x 2.4 cm low-density nodule measures -5, -11 Hounsfield units in the noncontrast series. There is mild enhancement with rapid more than 60% washout. Left adrenal gland: No nodular lesion. No change the appearance of the upper intra-abdominal organs. Multilevel spondylosis more conspicuous at T11-12. CT/CT adrenal wo/w IV con IMPRESSION: 2.6 x 1.7 x 2.4 cm lipid rich adenoma, right adrenal gland. Electronically signed by: Yariel Montgomery MD 10/21/2024 01:47 PM EST
[2024-08-25] MEDS: iohexoL 350 MG/ML 100 ML INFUS..BTL IV (11:26)
== END 2024-08-25 10:33 | disposition home or self-care (01) ==
LOC: HO.CT 10:32
PROVIDERS: PCP Internal Medicine Geriatric Medicine; Visit Provider Student in an Organized Health Care Education/Training Program
DX: E27.8 Other specified disorders of adrenal gland (principal)
CPT/HCPCS: 74170; Q9967

== ENCOUNTER → 2024-08-25 10:33 | Outpatient (BNV) | payer OTHER, SELFPAY | PROVIDERS: PCP Internal Medicine Geriatric Medicine; Visit Provider Radiology Diagnostic Radiology | DX: E27.8 Other specified disorders of adrenal gland (principal) | CPT/HCPCS: 74170 ==

== ENCOUNTER 2024-09-21 14:01 | Outpatient (AMB) | payer OTHER, SELFPAY ==
--- NOTE | 2024-09-21 14:07 | MHC.OFFVIS ---
Vital Signs 09/21/24 14:08 Height 4 ft 11 in Weight 200 lb 9.93 oz BMI 40.5 BP 110/68 Blood Pressure Location Rt brachial Position Sitting Pulse 112 H Pulse Source Pulse Oximeter Pulse Oximetry (%) 98 Oxygen Delivery Method Room Air Intake Visit Reasons: Cough/PFT Follow Up Equipment Engineering Technician: Equipment Engineering Technician offered & declined Accompanied by: Self / Same As Patient Allergies oxycodone Allergy (Intermediate, Verified 09/21/24 14:11) Nausea and Vomiting aspirin Allergy (Mild, Verified 09/21/24 14:11) Hives lisinopril Allergy (Mild, Verified 09/21/24 14:11) Cough morphine Allergy (Mild, Verified 09/21/24 14:11) Wheezing tramadol Allergy (Mild, Verified 09/21/24 14:11) Unknown Medication List - Last Reconciled 09/21/24 by Alexus Newberry LPN albuterol sulfate 90 mcg/actuation 2 inhalations inhalation Q4H PRN alendronate 70 mg PO QWEEK amlodipine 5 mg PO DAILY budesonide-formoterol 160-4.5 mcg/actuation (Symbicort) 2 puffs inhalation BID 30 days clotrimazole 1% 1 appl topical BID dexamethasone 1 mg PO ONCE NS doxycycline hyclate 100 mg PO BID 10 days duloxetine 60 mg PO DAILY famotidine 20 mg PO BID fluticasone furoate 50 mcg/actuation inhalation montelukast 10 mg PO BEDTIME omeprazole 20 mg PO BID quetiapine 100 mg PO BEDTIME triamcinolone acetonide 0.1% 1 appl topical BID HPI Comments Details: The patient is a 69 year woman with a known history of in adrenal adenoma who presents here after developing worsening cough. The patient states that several months ago she developed a viral syndrome. After she continued having a cough. The cough is moderate severity. Was congested in nature with yellow phlegm. She had been evaluated about 4 months ago and she was given antibiotics in addition to respiratory inhalers. Although only partially helpful. In the meantime she did have a chest x-ray which I personally reviewed demonstrating no acute disease. She has not had any pulmonary function studies. She is not aware of any allergies and she does not have any pets. No significant changes in her household. On examination she does have some rhonchi. Specially when she coughs. She does have an about of bronchitis. It may be asthmatic bronchitis or reactive airway disease. Will go start her on maintenance therapy to see if we can improve her symptoms and treat her with doxycycline case she has a smoldering infection. Will have her follow-up in 2-3 months after her PFTs. 09/21/2024 the patient is here for a pulmonary follow-up visit. Overall the patient has been doing okay. She does complaint of worsening cough chest congestion primarily at nighttime. She did not undergo her pulmonary function studies. She sometimes uses the Symbicort but she sometimes gets confused was which is the rescue inhaler in which the maintenance inhaler. At this point will try to maximize her respiratory therapy by switching over to Trelegy therefore be easier for her just to take 1 inhaler in the morning and have complete coverage throughout the day. She can use her rescue inhaler as needed. She needs to have her PFTs rescheduled and will follow-up in 6 months. The patient has any worsening symptoms prior to that she will call for an earlier assessment. [facility] Medical History (Updated 07/02/24 @ 23:04 by Fabricio Lauren MD) Dyspnea Chronic cough Adrenal incidentaloma Urticaria History of COVID-19 (~01/22/24) Essential hypertension MICHAEL-inhibitor cough Osteoarthritis of knee Urine incontinence Osteoporosis Low back pain, unspecified Obesity Depression Anxiety Surgical History Hx of total knee arthroplasty (~09/23/23) Social History (Updated 09/21/24 @ 14:11 by Alexus Newberry LPN) Patient Tobacco Use Status: Never used Tobacco Review of Systems Const Denies fever(s) Eyes Reports no additional complaints ENT Reports nasal congestion and Reports nasal discharge Card Denies chest pain, Denies palpitations and Reports dyspnea on exertion Resp Reports cough, Reports dyspnea on exertion and Reports wheezing GI Denies bloating Musc Reports no additional complaints Skin/Breast Denies rash Endo Denies palpitations Jose L/Lymph Denies lymphadenopathy Aller/Immun Reports wheezing Physical Exam Vital Signs: Last Vital Signs Pulse 112 H 09/21/24 14:08 BP 110/68 09/21/24 14:08 Pulse Ox 98 09/21/24 14:08 Oxygen Delivery Method Room Air 09/21/24 14:08 BMI result Body Mass Index 40.5 Const General: comfortable HEENT Head: Yes normocephalic Neck Neck: Yes supple Chest Chest palpation & inspection: normal inspection of the chest Resp Effort & Inspection: normal respiratory effort and prolonged expiratory phase Auscultation: no rales, no rhonchi, no wheezes and diminished lung sounds Cardio Heart sounds: S1 normal heart sound present and S2 normal heart sound present GI Palpation (GI): Soft to palpation Skin General skin exam: no rashes or lesions noted Extrem General: Yes no clubbing, cyanosis or edema Assessment & Plan Assessment & Plan (1) Chronic cough: Code(s): R05.3 - Chronic cough Category: Medical (2) Dyspnea: Code(s): R06.00 - Dyspnea, unspecified Category: Medical Qualifiers: Dyspnea type: dyspnea on exertion Qualified Code(s): R06.09 - Other forms of dyspnea (3) Bronchitis: Code(s): J40 - Bronchitis, not specified as acute or chronic Category: Medical Plan stop Symbicort start Trelegy 200 VANIA as needed PFTs F/U 4-6 months Medications: New sryhdujgjdn-smbycluaj-rfuwpuvk 200-62.5-25 mcg (Trelegy Ellipta) 1 inh inhalation DAILY 60 ea 12RF 30 days Coding Level of Care Code Est Pt Level 4 (58977) Diagnoses Chronic cough R05.3 Dyspnea on exertion R06.09 Dyspnea type: dyspnea on exertion Bronchitis J40 Time Spent (min) 16
[2024-09-21 14:08] VITALS: BP 110/68; PULSE 112; O2SAT 98; BMI 40.5
== END 2024-09-21 14:32 | disposition home or self-care (01) ==
PROVIDERS: PCP Internal Medicine Geriatric Medicine; Visit Provider Hospitalist
DX: R05.3 Chronic cough (principal); R06.09 Other forms of dyspnea; J40 Bronchitis, not specified as acute or chronic
CPT/HCPCS: 99214

== ENCOUNTER → 2024-09-21 14:01 | Outpatient (BNVA) | payer OTHER, SELFPAY | PROVIDERS: PCP Internal Medicine Geriatric Medicine; Visit Provider Hospitalist | DX: J40 Bronchitis, not specified as acute or chronic (principal); R05.3 Chronic cough; R06.09 Other forms of dyspnea | CPT/HCPCS: 99212 ==

== ENCOUNTER 2025-01-13 11:35 | Outpatient (REF) | payer OTHER, SELFPAY ==
--- NOTE | ~2025-01-13 | XR_ITS ---
EXAMINATION: XR CHEST CLINICAL INFORMATION: 2 weeks of non productive cough. Patient has flu last month COMPARISON: August 17, 2024. TECHNIQUE: 2 views of the chest were obtained. FINDINGS: Pulmonary reticular nodular pattern. No consolidation, pleural effusion or pneumothorax. No hyperinflation. Cardiomediastinal silhouette size is unchanged. Multilevel thoracic and upper lumbar spondylosis. Degenerative changes in the left acromioclavicular joint. Vascular clips in the upper abdomen seen on the lateral projection.. XR/XR chest 2V IMPRESSION: Probable chronic interstitial lung disease without acute airspace disease. Electronically signed by: Yariel Montgomery MD 01/13/2025 12:17 PM EST
--- OUTSIDE RECORDS SUMMARY | 2025-01-13 14:04 | XMS_ITS | Encounter Summary ---
Author Organization [employer] Address [address] [place] [address] Care Team Providers Care Operational Intelligence Officer Name Role Phone Name, Vic RAMOS Primary Care Provider [phone] Fabricio Lauren [phone] Reason for Visit * Reason Comments Med Refill Encounter Details Date Type Department Care Team ([facility] st Contact Info) Description 01/08/2025 Refill [facility] [address], [place] [id number] Name, MD Vic [address] [place] [address] Social History Tobacco Use Types Packs/Day Years Used Date Smoking Tobacco: Never Passive Smoke Exposure: Never Smokeless Tobacco: Never Alcohol Use Standard Drinks/Week Comments Never 0 (1 standard drink = 0.6 oz pur e alcohol) Depression Answer Date Recorded Patient Health Questionnaire-9 Score 9 2024 Patient Health Questionnaire-9 Score 9 2024 Last PHQ-9: Questionnaire Data Not on file 0 2024 Housing Stability Answer Date Recorded What is your housing situation today? I have shirley persaud [address] you li ve. Do you have problems with any of the following? None of the above 2024 Food Insecurity Answer Date Recorded Within the past 12 months, y ou worried that your food would run out before you got money to buy more: Never True 2024 Within the past 12 months,th e food you bought just didn't last and you didn't have enough money to get more: Never True Transportation Answer Date Recorded In the past 12 months, has l ack of transportation kept you from medical appts, meetings, work or from getting things needed for daily living? No 2024 Utilities Answer Date Recorded In the past 12 months, has t he electric, gas, oil or water company threatened to shut off services in your home? No 2024 Depression Answer Date Recorded Patient Health Questionnaire-2 Score 2 2024 Comments Unknown Sex and Gender Information Value Date Recorded Sex Assigned at Female 09/10/2022 10:23 AM EDT Legal Sex Female 10:23 AM EDT Gender Identity Female 09/10/2022 10:23 AM EDT Sexual Orientation Straight 09/10/2022 10 :23 AM EDT documented as of this encounter Plan of Treatment Upcoming Encounters Date Type Department Care Team (Late st Contact Info) Description 04/27/2025 3:15 PM EDT Office Visit [facility] [address] [place] [phone] Name, MD Vic [address] [place] [id number] documented as of this encounter Visit Diagnoses Not on filedocumented in this encounter Additional Health Concerns Assessment Noted Time PHQ-9 Depression Total Score: 9 01/22/20 24 11:20 AM EDT documented as of this encounter Care Teams Operational Intelligence Officer Relationship Specialty Start Date End Date Name, MD Vic [address] [place] [id number] PCP - General Family Medicine 01/12/16 Fabricio Lauren [address] [place] [id number] Pulmonary Disease 01/06/25 documented as of this encounter
--- OUTSIDE RECORDS SUMMARY | 2025-01-13 14:04 | XMS_ITS | Encounter Summary ---
Author Organization [employer] Address [address] [facility] [address] 7t [place] [address] Care Team Providers Care Analysis Director Name Role Phone Name, Vic RAMOS Primary Care Provider [phone] Fabricio Lauren [phone] Reason for Visit * Reason Comments Med Refill Encounter Details Date Type Department Care Team ([facility] st Contact Info) Description 01/07/2025 Refill [facility] [address] [place] [address] [phone] Name, MD Vic [address] [place] [address] Social History Tobacco Use Types Packs/Day Years [...] 04/27/2025 3:15 PM EDT Office Visit [facility] [address] [place] [address] Name, MD Vic [address] [place] [address] documented as of this encounter Visit Diagnoses Not on filedocumented in this encounter Additional Health Concerns Assessment Noted Time PHQ-9 Depression Total Score: 9 01/22/20 24 11:20 AM EDT documented as of this encounter Care Teams Analysis Director Relationship Specialty Start Date End Date Name, MD Vic [address] [place] [phone] PCP - General Family Medicine 01/12/16 Fabricio Lauren [address] [place] [phone] Pulmonary Disease 01/06/25 documented as of this encounter
--- OUTSIDE RECORDS SUMMARY | 2025-01-13 14:04 | XMS_ITS | Encounter Summary ---
Author Organization [employer] Address 75 [facility] 7t [place] [address] Care Team Providers Care Evaluator Transfer Students Name Role Phone Name, Vic RAMOS Primary Care Provider [phone] Fabricio Lauren Unavailable [phone] Encounter Details Date Type Department Care Team (Late st Contact Info) Description 12/27/2022 Orders Only [facility] [address] [place] [address] Katrin Zaldivar LPN Social History Tobacco Use Types Packs/Day Years Used Date Smoking Tobacco: Never Assessed Comments Unknown Sex and Gender Information Value [...] Description 04/27/2025 3:15 PM EDT Office Visit [facility] [address] [place] [address] NameVic MD [address] [place] [address] documented as of this encounter Visit Diagnoses Not on filedocumented in this encounter Care Teams Evaluator Transfer Students Relationship Specialty Start Date End Date Vic Heredia MD [address] [place] [address] PCP - General Family Medicine 01/12/16 Fabricio Lauren [address] [place] [phone] Pulmonary Disease 01/06/25 documented as of this encounter
--- OUTSIDE RECORDS SUMMARY | 2025-01-13 14:04 | XMS_ITS | Encounter Summary ---
Author Organization [employer] Address 75 [facility] 7t [place] [address] Care Team Providers Care Sprayer Operator Name Role Phone Name, Vic RAMOS Primary Care Provider [phone] Fabricio Lauren [phone] Reason for Visit * Reason Comments Asthma Encounter Details Date Type Department Care Team ([facility] st Contact Info) Description 01/06/2025 9:00 AM EST Office Visit [facility] [address] [place] [address] [phone] Teresa Santamaria MD [address] [place], [place] [phone] Influenza A (Primary Dx); Bronchiolitis; Dyspnea, unspecified type Social History Tobacco Use Types Packs/Day Years [...] AM EDT documented as of this encounter Last Filed Vital Signs Vital Sign Reading Time Taken Comments Blood Pressure 140/78 01/06/2025 8:58 AM EST Pulse 101 01/06/2025 8:58 AM EST Temperature 36.8 ??C (98.2 ??F) 01/06/2025 8:58 AM ES T Respiratory Rate 18 01/06/2025 8:58 AM EST Oxygen Saturation 98% 01/06/2025 8:58 AM EST Inhaled Oxygen Concentration - - Weight 89.8 kg (198 lb) 01/06/2025 8:58 AM EST Height - - Body Mass Index 39.99 08/17/2024 8:55 AM EDT documented in this encounter Patient Instructions * Patient Instructions* Teresa Santamaria MD - 01/06/2025 9:00 AM EST Pulmonary Function Test [address], [place] First floor behind registration. No inhalers 4 horas antes SaturdayFebruary 09 at 10:[address] Lauren, doctor de pulmone para mindy alvin [phone] documented in this encounter Progress Notes * Jose D Humphreys - 01/06/2025 9:00 AM EST Subjective Patient ID: Maryann Sauceda is a 69 y.o. female with past medical history choric cough, dyspnea,and bronchitis followed by pulmonology who presents to walk in clinic for shortness of breath. Hx of recurring bronchitis, initially seen pulmonology 06/2024 for worsening cough. The patient stated that several monthprior she developed a viral syndrome. After she continued having a cough. The cough is moderate severity. Was congested in nature with yellow phlegm. She had been evaluated about 4 months ago and she was given antibiotics in addition to respiratory inhalers. Although only partially helpful. In the meantime she did have a chest x-ray demonstrating no acute disease. She has not had any pulmonary function studies. She is not aware of any allergies and she does not have any pets. No significant changes in her household. On examination she did have some rhonchi. Specially when she coughs. She does have an about of bronchitis. It may be asthmatic bronchitis or reactive airway disease. She was started on her on maintenance therapy to see if we can improve her symptoms and treat her with doxycycline case she has a smoldering infection. And PFTs were ordered. She returned to pulmonary on 09/21/2024 reporting worsening cough chest congestion primarily at nighttime. She did not undergo her pulmonary function studies. She sometimes uses the Symbicort but shesometimes gets confused was which is the rescue inhaler in which the maintenance inhaler. She was switched over to Trelegy to take 1 inhaler in the morning and have complete coverage throughout the day. She can use her rescue inhaler as needed. Had PFTs ordered 07/2024. Pt has no documented history of asthma and is not a smoker. Pt reports trouble breathing and recurrent coughing that occurs for a couple days, recurrently every two weeks. She also notes she has had some rhinorrhea and some white mucus. Review of Systems Constitutional: Negative for fever and unexpected weight change. Respiratory: Positive for cough and shortness of breath. Cardiovascular: Negative for chest pain. Gastrointestinal: Negative for abdominal pain. Genitourinary: Negative for difficulty urinating. Objective Visit Vitals BP (!) 140/78 (BP Location: Right arm, Patient Position: Sitting, BP Cuff Size: Adult) Pulse 101 Temp 98.2 ??F (36.8 ??C) (Temporal) Resp 18 Body mass index is 39.99 kg/m??. Physical Exam Constitutional: Appearance: Normal appearance. Cardiovascular: Rate and Rhythm: Normal rate and regular rhythm. Heart sounds: Normal heart sounds. Pulmonary: Effort: Pulmonary effort is normal. No respiratory distress. Breath sounds: Rhonchi (with coughing) present. Abdominal: Tenderness: There is no abdominal tenderness. Musculoskeletal: Cervical back: Normal range of motion and neck supple. Neurological: General: No focal deficit present. Mental Status: She is alert. Psychiatric: Behavior: Behavior normal. Problem List Items Addressed This Visit Influenza A - Primary -influenza A positive -Tamiflu 75 mg, BID for 5 days -precautions discussed -supportive care discussed Bronchiolitis Recurrent episodes of coughing and SOB. Currently likely bronchiolitis. Has follow up PFTs and laboratory tester. -prescribed Prednisone 20 mg BID for 5 days. Dyspnea Long hx of recurrent coughing and dyspnea. Has seen laboratory tester, Dr. Lauren. Had PFTs ordered in 07/2024 In clinic today helped pt set up appointment to get PFTs done on . Given pre-arrival instructions. Relevant Orders Influenza A (ID NOW Rapid Molecular) (Completed) Influenza B (ID NOW Rapid Molecular) (Completed) POCT Rapid COVID Ag (Completed) -No evidence of acute disease process. Swabs positive for Flu A. Although suspecting recurrent dyspnea and coughing due to other etiology. Current symptoms mild, likely underlying bronchiolitis. -Solidified appt. For PFTs. Has follow-up with [employer]. -Will treat with steroids and Tamiflu. -ER precautions discussed. -Seek medical attention for worsening symptoms. I, Jose D Humphreys, am serving as a scribe to document services personally performed by Dr. Ceja, based on the patient's response to questions by provider and providers statements to me. documented in this encounter Miscellaneous Notes * Assessment & Plan Note - Jose D Humphreys - 01/06/2025 9:37 AM ESTAssociated Problem(s): Bronchiolitis Recurrent episodes of coughing and SOB. Currently likely bronchiolitis. Has follow up PFTs and laboratory tester. -prescribed Prednisone 20 mg BID for 5 days. * Assessment & Plan Note - Jose D Humphreys - 01/06/2025 9:35 AM ESTAssociated Problem(s): Influenza A -influenza A positive -Tamiflu 75 mg, BID for 5 days -precautions discussed -supportive care discussed * Assessment & Plan Note - Jose D Humphreys - 01/06/2025 9:27 AM ESTAssociated Problem(s): Dyspnea Long hx of recurrent coughing and dyspnea. Has seen laboratory tester, Dr. Lauren. Had PFTs ordered in 07/2024 In clinic today helped pt set up appointment to get PFTs done on . Given pre-arrival instructions. documented in this encounter Plan of Treatment Upcoming Encounters Date Type Department Care Team (Late st Contact Info) Description 04/27/2025 3:15 PM EDT Office Visit [facility] [address] [place] [address] Name, MD Vic [address] [place] [phone] documented as of this encounter Procedures Procedure Name Priority Date/Time Associated Diagnosis Comments POCT INFLUENZA B (ID NOW RAPID MOLECULAR) Routine 01/06/2025 9:12 AM EST Dyspnea, unspecified type POCT INFLUENZA A (ID NOW RAPID MOLECULAR) Routine 01/06/2025 9:12 AM EST Dyspnea, unspecified type POCT RAPID COVID ANTIGEN Routine 01/06/2025 9:05 AM EST Dyspnea, unspecified type documented in this encounter Results * Influenza B (ID NOW Rapid Molecular) (01/06/2025 9:12 AM EST) Pathologist [facility] Influenza B Negative Negative, Indeterminate [facility] Swab 01/06/2025 9:12 AM EST us Teresa Santamaria MD POINT OF CARE TEST ENTER/E DIT ORDERABLES Final Result Performing Organization Address [facility] Co de Phone Number [facility] [address] [place] [phone] * (ABNORMAL) Influenza A (ID NOW Rapid Molecular) (01/06/2025 9:12 AM EST) [facility] Influenza A Positive( A) Negative, Indeterminate [facility] Swab 01/06/2025 9:12 AM EST us Teresa Santamaria MD POINT OF CARE TEST ENTER/E DIT ORDERABLES Final Result Performing Organization Address [facility] Co de Phone Number [facility] [address] [place] [phone] * POCT Rapid COVID Ag (01/06/2025 9:05 AM EST) [facility] Rapid COVID Ag Negative Swab 01/06/2025 9:05 AM EST Teresa Santamaria MD POINT OF CARE TEST ENTER/E DIT ORDERABLES Final Result documented in this encounter Visit Diagnoses Diagnosis Influenza A- Primary Influenza with other respiratory manifestations Bronchiolitis Acute bronchiolitis due to other infectious organisms Dyspnea, unspecified type documented in this encounter Additional Health Concerns Assessment Noted Time PHQ-9 Depression Total Score: 9 01/22/20 24 11:20 AM EDT documented as of this encounter Care Teams Sprayer Operator Relationship Specialty Start Date End Date Name, MD Vic [address] [place] [phone] PCP - General Family Medicine 01/12/16 Fabricio Lauren [address] [place] [phone] Pulmonary Disease 01/06/25 documented as of this encounter
--- OUTSIDE RECORDS SUMMARY | 2025-01-13 14:04 | XMS_ITS | Encounter Summary ---
Author Organization [facility] Address 75 [facility] 7t [place] [address] Care Team Providers Care Telephone Operators Supervisor Name Role Phone NameVic MD Primary Care Provider [phone] Fabricio Lauren Unavailable [phone] Encounter Details Date Type Department Care Team (Latest Contact Info) Description 2019 Abstract [facility] Dental, Provider, DDS Social History Tobacco Use Types Packs/Day Years [...] Description 04/27/2025 3:15 PM EDT Office Visit [facility] [address] [place] [address] Vic Heredia MD [address] [place] [address] documented as of this encounter Visit Diagnoses Not on filedocumented in this encounter Care Teams Telephone Operators Supervisor Relationship Specialty Start Date End Date Vic Heredia MD [address] [place] [address] PCP - General Family Medicine 01/12/16 Fabricio Lauren [address] [place] [address] Pulmonary Disease 01/06/25 documented as of this encounter
--- OUTSIDE RECORDS SUMMARY | 2025-01-13 14:04 | XMS_ITS | Encounter Summary ---
Author Organization [employer] Address 75 [facility] 7t [place] [address] Care Team Providers Care Executive Kitchen Manager Name Role Phone Name, Vic RAMOS Primary Care Provider [phone] Fabricio Lauren [phone] Reason for Visit * Reason Comments Follow-up Encounter Details Date Type Department Care Team ([facility] st Contact Info) Description 01/12/2025 2:30 PM EST Office Visit [facility] [address] [place], [place] [phone] Name, MD Vic [address] [place] [address] Chronic coughing (Primary Dx); Flu; Lung crackles Social History Tobacco Use Types Packs/Day Years Used Date Smoking Tobacco: Never Passive Smoke Exposure: Never Smokeless Tobacco: Never Alcohol Use Standard Drinks/Week Comments Never 0 (1 standard drink = 0.6 oz pur e alcohol) Depression Answer Date Recorded Patient Health Questionnaire-9 Score 0 01/12/2025 Patient Health Questionnaire-9 Score 0 01/12/2025 Last PHQ-9: Questionnaire Data Not on file 0 01/12/2025 Housing Stability Answer Date Recorded What is [...] Answer Date Recorded Patient Health Questionnaire-2 Score 0 01/12/2025 Comments Unknown Sex and Gender Information Value Date Recorded Sex Assigned at Female 09/10/2022 10:23 AM EDT Legal Sex Female 10:23 AM EDT Gender Identity Female 09/10/2022 10:23 AM EDT Sexual Orientation Straight 09/10/2022 10 :23 AM EDT documented as of this encounter Last Filed Vital Signs Vital Sign Reading Time Taken Comments Blood Pressure 142/82 01/12/2025 2:40 PM EST Pulse 88 01/12/2025 2:40 PM EST Temperature 36.1 ??C (97 ??F) 01/12/2025 2:40 PM EST Respiratory Rate 22 01/12/2025 2:40 PM EST Oxygen Saturation 99% 01/12/2025 2:40 PM EST Inhaled Oxygen Concentration - - Weight 91.5 kg (201 lb 12.8 oz) 01/12/2025 2:40 PM EST Height 149.9 cm (4' 11 ) 01/12/2025 2:40 PM EST Body Mass Index 40.76 01/12/2025 2:40 PM EST documented in this encounter Progress Notes * Vic Heredia MD - 01/12/2025 2:30 PM EST Subjective Patient ID: Maryann Sauceda is a 69 y.o. female who presents for Follow-up. Patient comes for a follow-up visit. She does not feel well. She has worsening of her cough. She denies any fevers, no chills, no wheezing, no shortness of breath. She has a personal history of recurrent cough suggestive of bronchial hyperreactivity. She follows with [facility] pulmonary. Her respiratory symptoms worsened in the past few days. She was seen last week at walk-in clinic and was diagnosed with flu. She was prescribed a short course of prednisone that helped a little bit. She already finished her course of Tamiflu. She has Symbicort and albuterol at home. She has an appointment with [facility] pulmonary already scheduled for next month. Review of Systems Constitutional: Negative for chills, fatigue and fever. HENT: Negative for sore throat. Respiratory: Positive for cough. Negative for shortness of breath and wheezing. Cardiovascular: Negative for chest pain, palpitations and leg swelling. Gastrointestinal: Negative for abdominal pain. Visit Vitals BP (!) 142/82 (BP Location: Right arm, Patient Position: Sitting, BP Cuff Size: Large adult long) Pulse 88 Temp 97 ??F (36.1 ??C) (Temporal) Resp 22 Ht 4' 11 (1.499 m) Wt 201 lb 12.8 oz (91.5 kg) SpO2 99% BMI 40.76 kg/m?? Smoking Status Never BSA 1.95 m?? Objective Physical Exam Constitutional: General: She is not in acute distress. Appearance: Normal appearance. She is not ill-appearing or toxic-appearing. Cardiovascular: Rate and Rhythm: Normal rate and regular rhythm. Heart sounds: No murmur heard. No gallop. Pulmonary: Effort: Pulmonary effort is normal. No respiratory distress. Breath sounds: No wheezing. Comments: I heard crackles on the posterior right lower lung field Musculoskeletal: Right lower leg: No edema. Left lower leg: No edema. Neurological: Mental Status: She is alert. Assessment/Plan Diagnoses and all orders for this visit: Chronic coughing Comments: I suspect exacerbation of underlying bronchial hyperreactivity after flu infection. She is recommended to continue current inhalers including daily Symbicort and rescue albuterol. I will give her another short course of prednisone. I wanted to do an x-ray today but unfortunately she has to go but rufus cardenas assures me that she will come back tomorrow. Further recommendation based on the results and response to extension of her prednisone course. She is encouraged to keep her upcoming appointment with pulmonary. Orders: - XR Chest 2 Views; Future Flu Lung crackles Other orders - predniSONE (Deltasone) 20 MG tablet; Take 2 tablets (40 mg) by mouth Once per day for 5 days. documented in this encounter Plan of Treatment Upcoming Encounters Date Type Department Care Team (Late st Contact Info) Description 04/27/2025 3:15 PM EDT Office Visit [facility] [place] [address] Name, [place] [address] documented as of this encounter Procedures Procedure Name Priority Date/Time Associated Diagnosis Comments XR CHEST 2 VIEWS Routine 01/13/2025 11:3 5 AM EST Chronic coughing documented in this encounter Results * XR Chest 2 Views (01/13/2025 11:35 AM EST) Anatomical Region Laterality Modality Chest Radiographic Celine ging 01/13/2025 11:3 5 AM EST Narrative 01/13/2025 12:20 PM EST ?[facility] ?Steve Reyna. ?[place] [address] ?XRay Report ? Signed ? Patient: Maryann Sauceda V ?MR#: [id number] ?? [id number] ? : 1955 ?Acct:[id number] ? Age/Sex: 69 / F ?ADM Date: 01/13/25 ? Loc: HO.HHCX ? Attending Dr: Vic Heredia MD ? Ordering Physician: Vic Heredia MD ?? Date of Service: 01/13/25 ?? Procedure(s): XR chest 2V ?? Accession Number(s): [id number] ? cc: Vic Heredia MD ? EXAMINATION: ?? XR CHEST ? CLINICAL INFORMATION: ?? 2 weeks of non productive cough. Patient has flu last month ? COMPARISON: ?? August 17, 2024. ? TECHNIQUE: ?? 2 views of the chest were obtained. ? FINDINGS: ?? Pulmonary reticular nodular pattern. No consolidation, pleural effusion ?? or pneumothorax. No hyperinflation. Cardiomediastinal silhouette size ?? is unchanged. Multilevel thoracic and upper lumbar spondylosis. ?? Degenerative changes in the left acromioclavicular joint. ?? Vascular clips in the upper abdomen seen on the lateral projection.. ? XR/XR chest 2V ?? IMPRESSION: ?? Probable chronic interstitial lung disease without acute airspace ?? disease. ? Electronically signed by: ??Yariel Montgomery MD ??01/13/2025 12:17 PM ?? EST RP ? Dictated By: ?Yariel Benavides MD ? Signed By: ?<Electronically signed by Yariel Pickett MD in OV> ? 01/13/257 ? DD/ 1135 ? TD/TT: 01/13/25 1200 ? Camp Manager: ? Procedure Note Donotuseinterpreter, Image - 01/13/2025 [facility] [address] [place] [address] XRay Report Signed Patient: Maryann Sauceda VMR#: [id number] : 5Acct:[id number] Age/Sex: 69 / FADM Date: 01/13/25 Loc: HO.HHCX Attending Dr: Vic Heredia MD Ordering Physician: Vic Heredia MD Date of Service: 01/13/25 Procedure(s): XR chest 2V Accession Number(s): [id number] cc: Vic Heredia MD EXAMINATION: XR CHEST CLINICAL INFORMATION: 2 weeks of non productive cough. Patient has flu last month COMPARISON: August 17, 2024. TECHNIQUE: 2 views of the chest were obtained. FINDINGS: Pulmonary reticular nodular pattern. No consolidation, pleural effusion or pneumothorax. No hyperinflation. Cardiomediastinal silhouette size is unchanged. Multilevel thoracic and upper lumbar spondylosis. Degenerative changes in the left acromioclavicular joint. Vascular clips in the upper abdomen seen on the lateral projection.. XR/XR chest 2V IMPRESSION: Probable chronic interstitial lung disease without acute airspace disease. Electronically signed by: Yariel Montgomery MD 01/13/2025 12:17 PM [facility] Dictated By: Yariel Benavides MD Signed By: <Electronically signed by Yariel Pickett MDin OV> 01/13/25 1217 DD/ 1135 TD/TT: 01/13/25 1200 Camp Manager: Vic Heredia MD IMG XR PROCEDURES Edited Result - Final documented in this encounter Visit Diagnoses Diagnosis Chronic coughing- Primary Cough Flu Influenza with other respiratory manifestations Lung crackles documented in this encounter Additional Health Concerns Assessment Noted Time PHQ-9 Depression Total Score: 0 01/13/20 2:41 PM EST documented as of this encounter Care Teams Executive Kitchen Manager Relationship Specialty Start Date End Date Name, MD Vic [address] [place] [address] PCP - General Family Medicine 01/12/16 Fabricio Lauren [address] [place] [address] Pulmonary Disease 01/06/25 documented as of this encounter
--- OUTSIDE RECORDS SUMMARY | 2025-01-13 14:04 | XMS_ITS | Encounter Summary ---
Author Organization [facility] Address 75 [facility] 7t [place] [address] Care Team Providers Care Mixer And Blender Name Role Phone Name, Vic RAMOS Primary Care Provider [phone] Fabricio Lauren [phone] Encounter Details Date Type Department Care Team (Late st Contact Info) Description 03/11/2023 Orders Only [facility] [address] [place] [address] [phone] An Rico LPN Social History Tobacco Use Types Packs/Day Years Used Date Smoking Tobacco: Never Smokeless Tobacco: Never Comments Unknown Sex and Gender Information Value Date Recorded Sex Assigned at Female 09/10/2022 10:23 AM EDT Legal Sex Female 10:23 AM EDT Gender Identity Female 09/10/2022 10:23 AM EDT Sexual Orientation Straight 09/10/2022 10 :23 AM EDT COVID-19 Exposure Response Date Recorded In the last 10 days, have yo u been in contact with someone who was confirmed or suspected to have Coronavirus/COVID-19? No / Unsure 03/05/2023 10:21 AM EDT documented as of this encounter Plan of Treatment Upcoming Encounters Date Type Department Care Team (Late st Contact Info) Description 04/27/2025 3:15 PM EDT Office Visit [facility] [address] [place], [place] [phone] Vic Heredia MD [address] [place] [address] documented as of this encounter Visit Diagnoses Not on filedocumented in this encounter Care Teams Mixer And Blender Relationship Specialty Start Date End Date Vic Heredia MD [address] [place] [address] PCP - General Family Medicine 01/12/16 Fabricio Lauren [address] [place] [address] Pulmonary Disease 01/06/25 documented as of this encounter
--- OUTSIDE RECORDS SUMMARY | 2025-01-13 14:04 | XMS_ITS | Clinical Summary ---
Author Organization [employer] Address [address] [facility] [address] [place] [address] Care Team Providers Care Roller Checker Name Role Phone Name, Vic RAMOS Primary Care Provider [phone] Fabricio Lauren [phone] Allergies Active Allergy Reactions Criticality Noted Date Comments Aspirin Hives,Swelling 05/06/2008 Lisinopril Cough 04/03/2022 Morphine Wheezing 03/13/2012 Other Swelling 05/25/2008 Oxycodone-Acetaminophen Nausea And Vomiting Tramadol 12/06/2011 vomiting Medications triamcinolone (Kenalog) 0.1 % cream Apply topically if needed in the morning and at bedtime for rash. Apply sparingly 30 g 2 03/05/20 23 Active clotrimazole (Lotrimin) 1 % cream Apply topically 2 times daily. 30 g 2 03/05/20 23 Active famotidine (Pepcid) 20 MG tablet Take 1 tablet (20 mg) by mouth 2 times daily. 60 tablet 11 03/26/20 24 025 Active albuterol (2.5 MG/3ML) 0.083% nebulizer solutionIndica tions:Bronchit is Take 3 mL (2.5 mg) by nebulization every 4 (four) hours if needed for wheezing. 75 mL 3 08/17/20 24 025 Active Nebulizers misc 1 kit Every 4-6 hours as needed. Use as directed for wheezing and shortness of breath. Acceleron nebulizer given in walk in 08/17/2024 education provided Active budesonide-for moterol (Symbicort) 160-4.5 MCG/ACT inhaler Inhale 2 puffs in the morning and at bedtime. Rinse mouth with water after use to reduce aftertaste and incidence of candidiasis. Do not swallow. 09/09/20 24 Active albuterol 108 (90 Base) MCG/ACT inhaler Inhale 2 puffs every 4 (four) hours if needed for wheezing. 18 g 3 09/09/20 24 Active omeprazole (PriLOSEC) [address] capsuleIndicat ions:Hypertens ion, unspecified type TAKE 1 CAPSULE BY MOUTH EVERY DAY BEFORE A MEAL 90 capsule 1 01/06/20 25 Active amLODIPine (Norvasc) 5 MG tabletIndicati ons:Hypertensi on, unspecified type TAKE 1 TABLET BY MOUTH EVERY DAY 90 tablet 1 01/06/20 25 Active predniSONE (Deltasone) 20 MG tablet 2 tabs po daily for 5 days 10 tablet 01/06/20 25 Active fluticasone (Flonase) 50 MCG/ACT nasal spray USE 2 SPRAYS IN EACH NOSTRIL EVERY MORNING.SHAKE GENTLY,CLEAN TIP AFTER USE 48 mL 01/07/20 25 Active montelukast (Singulair) 10 MG tablet TAKE 1 TABLET BY MOUTH AT BEDTIME 90 tablet 1 01/08/20 25 Active predniSONE (Deltasone) 20 MG tablet Take 2 tablets (40 mg) by mouth Once per day for 5 days. 10 tablet 01/13/20 25 025 Active amLODIPine (Norvasc) 5 MG tabletIndicati ons:Hypertensi on, unspecified type TAKE 1 TABLET BY MOUTH EVERY DAY 90 tablet 1 07/14/20 24 025 Discontinued omeprazole (PriLOSEC) [address] capsuleIndicat ions:Hypertens ion, unspecified type TAKE 1 CAPSULE BY MOUTH EVERY DAY BEFORE A MEAL 90 capsule 1 07/14/20 24 025 Discontinued predniSONE (Deltasone) 10 MG tabletIndicati ons:Cough in adult patient,Wheezi ng Take by oral route daily. 6 tabs (=60mg) on day 1-2; 5 tabs (=50mg) on day 3-4; 4 tabs (=40mg) on day 5-6; 3 tabs (=30mg) on day 7-8; 2 tabs (=20mg) on day 9-10; 1 tab on day 11-12; 1/2 tab on day 13-14 43 tablet 09/09/20 24 025 Discontinued montelukast (Singulair) 10 MG tablet TAKE 1 TABLET BY MOUTH AT BEDTIME 90 tablet 1 09/17/20 24 025 Discontinued fluticasone (Flonase) 50 MCG/ACT nasal spray USE 2 SPRAYS IN EACH NOSTRIL EVERY MORNING.SHAKE GENTLY,CLEAN TIP AFTER USE 48 mL 10/01/20 24 025 Discontinued oseltamivir (Tamiflu) 75 MG capsuleIndicat ions:Influenza A Infection Take 1 capsule (75 mg) by mouth 2 times daily for 5 days. 10 capsule 01/06/20 025 Active Problems Problem Noted Date Diagnosed Date Dyspnea 01/06/2025 Assessment & Plan (01/06/2025 9:27 AM EST): Long hx of recurrent coughing and dyspnea. Has seen trimming press operator, Dr. Lauren. Had PFTs ordered in 07/2024 In clinic today helped pt set up appointment to get PFTs done on . Given pre-arrival instructions. Influenza A 01/06/2025 Assessment & Plan (01/06/2025 9:35 AM EST): -influenza A positive -Tamiflu 75 mg, BID for 5 days -precautions discussed -supportive care discussed Bronchiolitis 01/06/2025 Assessment & Plan (01/06/2025 9:37 AM EST): Recurrent episodes of coughing and SOB. Currently likely bronchiolitis. Has follow up PFTs and trimming press operator. -prescribed Prednisone 20 mg BID for 5 days. Bronchitis 08/17/2024 Assessment & Plan (08/17/2024 10:35 AM EDT): The patient was prescribed a nebulizer from the [employer] vendor [employer]. Instructions on how to use the nebulizer were provided. I also prescribed for patient levofloxacin and prednisone 1 week course Continue to follow with pulmonology and PCP History of COVID-19 2024 Urticaria 2024 MICHAEL-inhibitor cough 09/23/2023 09/23/2023 Essential hypertension 09/23/2023 Pain in toe 04/11/2018 Rash and nonspecific skin eruption 09/16/2017 History of total knee arthroplasty 03/09/2016 09/23/2023 Primary osteoarthritis of both knees 03/09/2016 Osteoarthritis of knee 05/31/2009 ESR raised 05/11/2009 Overview (2024): IEP negative for monoclonal protein, ccp Ab and RF negative Urine incontinence 02/24/2009 Overview (2024): Patient has symptome urge and stress incontinence Osteoporosis 06/29/2008 Overview (2024): DEXA scan was done at her previous PCP office. Joint pain 05/25/2008 DJD (degenerative joint disease) 05/06/2008 09/23/2023 Overview (09/23/2023): Multiple joints involved Anxiety 05/06/2008 Depression 05/06/2008 Obesity 05/06/2008 Low back pain, unspecified 05/06/2008 Encounters Date Type Department Care Team Description 01/12/2025 2:30 PM EST Office Visit [facility] [address] [place] [address] Name, MD Vic Chronic coughing (Primary Dx); Flu; Lung crackles 01/12/2025 Travel 01/08/2025 Refill [facility] [address] [place] [address] Name, MD Vic 01/07/2025 Refill [facility] [address] [place] [phone] Name, MD Vic 01/06/2025 9:00 AM EST Office Visit [facility] [address] [place] [phone] Teresa Santamaria MD Influenza A (Primary Dx); Bronchiolitis; Dyspnea, unspecified type 01/06/2025 Refill [facility] [address] [place] [address] Vic Heredia MD Hypertension, unspecified type 11/12/2024 Telephone [facility] [address] [place] [address] Otto Silva MA jan recalls from Last 3 Months Immunizations Name Administration Dates Next Due Influenza injectable quadriv alent IIV4 with preservative 08/22/2018,09/05/2017,08/01/2016 Influenza injectable quadriv alent preservative free 09/25/2022,10/02/2021 Influenza, IIV3, injectable 07/22/2015, 3,07/23/2011 Tdap 05/25/2008 Social History Tobacco Use Types Packs/Day Years Used Date Smoking Tobacco: Never Passive Smoke Exposure: Never Smokeless Tobacco: Never Tobacco Cessation:Counseling Given: Not Answered Alcohol Use Standard Drinks/Week Comments Never 0 (1 standard drink = 0.6 oz pur e alcohol) Depression Answer Date Recorded Patient Health Questionnaire-9 Score 0 01/12/2025 Patient Health Questionnaire-9 Score 0 01/12/2025 Last PHQ-9: Questionnaire Data Not on file 0 01/12/2025 Housing Stability Answer Date Recorded What is your housing situation today? I have shirleytiffani persaud [address] you [...] t he electric, gas, oil or water [employer] threatened to shut off services in your home? No 2024 Depression Answer Date Recorded Patient Health Questionnaire-2 Score 0 01/12/2025 Comments Unknown Sex and Gender Information Value Date Recorded Sex Assigned at Female 09/10/2022 10:23 AM EDT Legal Sex Female 10:23 AM EDT Gender Identity Female 09/10/2022 10:23 AM EDT Sexual Orientation Straight 09/10/2022 10 :23 AM EDT Last Filed Vital Signs Vital Sign Reading [...] Mass Index 40.76 01/12/2025 2:40 PM EST Plan of Treatment Upcoming Encounters Date Type Department Care Team (Late st Contact Info) Description 04/27/2025 3:15 PM EDT Office Visit [facility] [address] [place] [address] Name, MD Vic [address] [place] [phone] Health Maintenance Due Date Last Done Comments CT Colonography 1955 FIT DNA/Cologuard 1955 FIT 1955 FOBT 1955 Lipid Panel 1955 Sigmoidoscopy 1955 Alcohol/Substance Use Screening 1967 Pneumococcal Vaccine: 50+ Years (1 of 2 - PCV) 1974 Zoster Vaccines (1 of 2) 2005 RSV Patients and Patients Aged 60 years or older (1 - Risk 60-74 years 1-dose series) 2015 DTaP/Tdap/Td Vaccines (2 - Td or Tdap) 05/25/2018 05/25/2008 Dental Oral Exam 05/14/2022 11/13/2021, 09/23/2015 Dental Prophylaxis 05/14/2022 11/13/2021, 0 07/27/2019, 2019, Additional history exists Dental X-Ray: Bitewings 11/14/2022 11/13/19 22, 2019, 09/23/2015 COVID-19 Vaccine ( season) 2024 09/25/2022, 10/02/2021, 01/25/2021 Influenza Vaccine (#1) 2024 , 10/02/2021, 08/22/2018, Additional history exists Dental X-Ray: Full Mouth 11/14/2024 11/13/2021, 09/11 SDOH Screening 01/21/2025 2024 Mammogram 12/18/2025 12/18/2023, 01/2023, 12/14/2022, Additional history exists Depression Screening 01/12/2026 01/12/2025, 01/13/20 Tobacco Screening 01/12/2026 01/12/2025 Colonoscopy 08/09/2027 08/09/2017 Colorectal Cancer Screening 08/09/2027 Hepatitis C Screening Completed 01/23/2022 HIB Vaccines Aged Out No longer eligi ble based on patient's age to complete this topic HPV Vaccines Aged Out No longer eligi ble based on patient's age to complete this topic Hepatitis A Vaccines Aged Out No long er eligible based on patient's age to complete this topic Hepatitis B Vaccines Aged Out No long er eligible based on patient's age to complete this topic IPV Vaccines Aged Out No longer eligi ble based on patient's age to complete this topic Meningococcal Vaccine Aged Out No jeromy katie eligible based on patient's age to complete this topic RSV under 20 months Aged Out No longe r eligible based on patient's age to complete this topic Rotavirus Vaccines Aged Out No longer eligible based on patient's age to complete this topic Procedures Procedure Name Priority Date/Time Associated Diagnosis Comments XR CHEST 2 VIEWS Routine 01/13/2025 11:3 5 AM EST Chronic coughing POCT INFLUENZA B (ID NOW RAPID MOLECULAR) Routine 01/06/2025 9:12 AM EST Dyspnea, unspecified type POCT INFLUENZA A (ID NOW RAPID MOLECULAR) Routine 01/06/2025 9:12 AM EST Dyspnea, unspecified type POCT RAPID COVID ANTIGEN Routine 01/06/2025 9:05 AM EST Dyspnea, unspecified type BI MAMMOGRAM SCREENING TOMOSYNTHESIS BILATERAL Routine 12/18/2023 10:42 AM EST ZZZ HISTORICAL HEPATITIS C AB W/REFL TO HCV RNA, QN, PCR Routine 01/23/2022 11:58 AM EDT PROPHYLAXIS - ADULT Routine 11/13/2021 1 2:00 AM EST INTRAORAL - COMPLETE SERIES OF RADIOGRAPHIC IMAGES Routine 11/13/2021 12:00 AM EST PERIODIC ORAL EVALUATION - ESTABLISHED PATIENT Routine 11/13/2021 12:00 AM EST HM COLONOSCOPY Routine 08/09/2017 10:29 AM EDT from Last 3 Months or Most Recently Relevant to Health Maintenance Results * XR Chest 2 Views (01/13/2025 11:35 AM EST) Anatomical Region Laterality Modality Chest Radiographic Celine ging 01/13/2025 11:3 5 AM EST Narrative 01/13/2025 12:20 PM EST ?[facility] ?[address] ?[place] [address] ?XRay Report ? Signed ? Patient: Sauceda,Maryann V ?MR#: [id number] ?? [id number] ? : 1955 ?Acct:[id number] ? Age/Sex: 69 / F ?ADM Date: 03/05/25 ? Loc: HO.HHCX ? Attending Dr: Vic Heredia MD ? Ordering Physician: Name,Vic RAMOS ?? Date of Service: 01/13/25 ?? Procedure(s): XR chest 2V ?? Accession Number(s): [id number] ? cc: Yan,Vic RAMOS ? EXAMINATION: ?? XR CHEST ? CLINICAL [...] Montgomery MD ??01/13/2025 12:17 PM ?? EST ? Dictated By: ?Yariel Benavides MD ? Signed By: ?<Electronically signed by Yariel Pickett MD in OV> ? 01/13/25 1217 ? DD/ 1135 ? TD/TT: 01/13/25 1200 ? Host And Hostess: ? Procedure Note Conrad, Image - 01/13/2025 [place] [address] XRay Report Signed Patient: Maryann Sauceda VMR#: [id number] : 5Acct:[id number] Age/Sex: 69 / FADM Date: 01/13/25 Loc: HO.HHCX Attending Dr: Vic Heredia MD Ordering Physician: Vic Heredia MD Date of Service: 01/13/25 Procedure(s): XR chest 2V Accession Number(s): [id number] cc: Vic Heredia MD EXAMINATION: XR CHEST [...] by: Yariel Montgomery MD 01/13/2025 12:17 PM EST RP Dictated By: Yariel Benavides MD Signed By: <Electronically signed by Yariel Pickett MDin OV> 01/13/25 1217 DD/ 1135 TD/TT: 01/13/25 1200 Host And Hostess: Vic Heredia MD IMG XR PROCEDURES Edited Result - Final * Influenza B (ID NOW Rapid Molecular) (01/06/2025 9:12 AM EST) Influenza B Negative Negative, Indeterminate [facility] Swab 01/06/2025 9:12 AM EST Teresa Santamaria MD POINT OF CARE TEST ENTER/E DIT ORDERABLES Final Result Performing Organization Address [facility] Co de Phone Number [facility] [address] [place] [phone] * (ABNORMAL) Influenza A (ID NOW Rapid Molecular) (01/06/2025 9:12 AM EST) Pathologist [facility] Influenza A Positive( A) Negative, Indeterminate [facility] Swab 01/06/2025 9:12 AM EST Teresa Santamaria MD POINT OF CARE TEST ENTER/E DIT ORDERABLES Final Result Performing Organization Address [facility] Co de Phone Number [facility] [address] [place] [address] [phone] * POCT Rapid COVID Ag (01/06/2025 9:05 AM EST) Rapid COVID Ag Negative Swab 01/06/2025 9:05 AM EST us Teresa Santamaria MD POINT OF CARE TEST ENTER/E DIT ORDERABLES Final Result * BI Mammogram Screening Tomosynthesis Bilateral (12/18/2023 10:42 AM EST) Anatomical Region Laterality Modality Breast Bilateral Mammography 12/18/2023 10:4 2 AM EST Narrative 01/11/2024 9:49 PM EST ? [facility] [place] ? [address] ?[place] [address] ? Mammography Report ? Signed ? Patient: Maryann Sauceda V ?MR#: [id number] ? : 1955 ?Acct:[id number] ? Age/Sex: 68 / F ?ADM Date: 12/18/23 ? Loc: HO.MAMMO ? Attending Dr: Vic Name MD ? Ordering Physician: Name,Vic MD ?Results: 1Negative ? Date of Service: 12/18/23 ?Follow Up: 1 Year From Orig ?? inal Mammogram ? Procedure(s): MM tomosynthesis screening BI ?? Accession Number(s): [id number] ? cc: Name,Vic RAMOS ? EXAMINATION: ?? MM SCREENING DIGITAL BREAST TOMOSYNTHESIS, BILATERAL ? CLINICAL INFORMATION: ? Screening. Asymptomatic. ? COMPARISON: ?? Mammography: This study is compared with prior exams dating back to ?? 2017. ? TECHNIQUE: ?? Digital breast tomosynthesis is performed in both the craniocaudal and ?? mediolateral oblique views along with computer-aided detection (CAD). ?? Synthesized 2D images are generated from the tomosynthesis. ? FINDINGS: ?? There are scattered areas of fibroglandular density (ACR BI-RADS breast ?? composition Category b). ? There are no significant masses, abnormal calcifications, or other ?? abnormalities. ? MM/MM tomosynthesis screening BI ?? IMPRESSION: ?? No mammographic evidence of malignancy. ? ASSESSMENT: ? BI-RADS BI-RADS 1 - Negative ? RECOMMENDATION: ?? Routine annual mammography screening. ? 1 year F/U ? This examination should not preclude the clinical evaluation of a ?? suspicious palpable abnormality. ? This patient's information was entered into a reminder system with a ?? target due date for their next mammogram. ? Dictated By: ?Rachael Ballard MD ? Signed By: ?<Electronically signed by Rachael Ballard MD in OV> ? 01/11/242145 ? DD/ 1042 ? TD/TT: ? Host And Hostess: ? Procedure Note Mahi Martines - 01/11/2024 Marjorie [facility] [address] [place] [address] Mammography Report Signed Patient: Maryann Sauceda R#: [id number] : 5Acct:[id number] Age/Sex: 68 / FADM Date: 12/18/23 Loc: HO.ANAO Attending Dr: Vic Heredia MD Ordering Physician: Vic Herediaesults: 1Negative Date of Service: 12/18/23Follow Up: 1 Year From Orig inal Mammogram Procedure(s): MM tomosynthesis screening BI Accession Number(s): [id number] cc: Vic Heredia MD EXAMINATION: MM SCREENING DIGITAL BREAST TOMOSYNTHESIS, BILATERAL CLINICAL INFORMATION: Screening. Asymptomatic. COMPARISON: Mammography: This study is compared with prior exams dating back to 2017. TECHNIQUE: Digital breast tomosynthesis is performed in both the craniocaudal and mediolateral oblique views along with computer-aided detection (CAD). Synthesized 2D images are generated from the tomosynthesis. FINDINGS: There are scattered areas of fibroglandular density (ACR BI-RADS breast composition Category b). There are no significant masses, abnormal calcifications, or other abnormalities. MM/MM tomosynthesis screening BI IMPRESSION: No mammographic evidence of malignancy. ASSESSMENT: BI-RADS BI-RADS 1 - Negative RECOMMENDATION: Routine annual mammography screening. 1 year F/U This examination should not preclude the clinical evaluation of a suspicious palpable abnormality. This patient's information was entered into a reminder system with a target due date for their next mammogram. Dictated By: Rachael Ballard MD Signed By: <Electronically signed by Rachael Ballard MD in OV> 01/11/24 2146 DD/ 1042 TD/TT: Host And Hostess: us Vic Heredia MD IMG BI PROCEDURES Final Result * HEPATITIS C AB W/REFL TO HCV RNA, QN, PCR (01/23/2022 11:58 AM EDT) HEPATITIS C ANTIBODY NON-REACT ROCHELLE NON-REACT ROCHELLE [facility] INDEX 0.02 <1.00 [facility] Comment: ?? HCV antibody was non-reactive. There is no laboratory ?? evidence of HCV infection. ?? In most cases, no further action is required. However, if recent HCV exposure is suspected, a test for HCV RNA (test code 43259) is suggested. ?? For additional information please refer to http://education.Lightwaves.CrowdCan.Do/faq/CXV53b2 (This link is being provided for informational/ educational purposes only.) ?? 01/23/2022 11:5 8 AM EDT us Vic Heredia MD HISTORICAL/NON ORDERABLE LABS Fi nal Result [facility] [address] * Hm Colonoscopy (08/09/2017 10:29 AM EDT) Colonoscopy Normal Normal Narrative Yazmin Williamson - 08/09/2017 10:29 AM EDT Recommended 5 year follow up us Historical Provider MD HEALTH MAINTENANCE Final Result from Last 3 Months or Most Recently Relevant to Health Maintenance Insurance [facility]AL - [facility] Care Teams Roller Checker Relationship Specialty Start Date End Date Name, MD Vic [address] [place] [phone] PCP - General Family Medicine 01/12/16 Fabricio Lauren [address] [place] [address] Pulmonary Disease 01/06/25
--- OUTSIDE RECORDS SUMMARY | 2025-01-13 14:04 | XMS_ITS | Encounter Summary ---
Author Organization [employer] [facility] Address [address] [facility] 7t [place] [address] Care Team Providers Care Melting Furnace Skimmer Name Role Phone NameVic MD Primary Care Provider [phone] Fabricio Lauren [phone] Reason for Visit * Reason Comments Med Refill Encounter Details Date Type Department Care Team (Late st Contact Info) Description 03/09/[address] [facility] [address] [place] [phone] NameVic MD [address] [place] [address] [phone] Social History Tobacco Use Types Packs/Day Years [...] Encounters Date Type Department Care Team (Late Contact Info) Description 04/27/2025 3:15 PM EDT Office Visit [facility] [address] [place] [address] [phone] Vic Heredia MD [address] [place] [address] [phone] documented as of this encounter Visit Diagnoses Not on filedocumented in this encounter Care Teams Melting Furnace Skimmer Relationship Specialty Start Date End Date Name, MD Vic [address] [place] [address] PCP - General Family Medicine 01/12/16 Fabricio Lauren [address] [place] [address] Pulmonary Disease 01/06/25 documented as of this encounter
--- OUTSIDE RECORDS SUMMARY | 2025-01-13 14:04 | XMS_ITS | Encounter Summary ---
Author Organization [employer] Address [address] [facility] 7t [place] [address] Care Team Providers Care Flask Maker Name Role Phone Name, Vic RAMOS Primary Care Provider [phone] Fabricio Lauren [phone] Encounter Details Date Type Department Care Team (Latest Contact Info) Description 01/12/2025 Travel Social History Tobacco Use Types Packs/Day Years [...] Description 04/27/2025 3:15 PM EDT Office Visit [facility] [address] [place] [address] Name, MD Vic [address] [place] [phone] documented as of this encounter Visit Diagnoses Not on filedocumented in this encounter Additional Health Concerns Assessment Noted Time PHQ-9 Depression Total Score: 0 01/13/20 25 2:41 PM EST documented as of this encounter Care Teams Flask Maker Relationship Specialty Start Date End Date Name, MD Vic [address] [place] [phone] PCP - General Family Medicine 01/12/16 Fabricio Lauren [address] [place] [address] Pulmonary Disease 01/06/25 documented as of this encounter
--- OUTSIDE RECORDS SUMMARY | 2025-01-13 14:04 | XMS_ITS | Encounter Summary ---
Author Organization [facility] Address [address] [facility] 7t [place] [address] Care Team Providers Care Last Code Striper Name Role Phone NameVic MD Primary Care Provider [phone] Fabricio Lauren [phone] Encounter Details Date Type Department Care Team (Late st Contact Info) Description 09/24/2023 Orders Only [facility] [address] [place] [address] [phone] Raghavendra West MD [address] [place] [address] Social History Tobacco Use Types Packs/Day Years Used Date Smoking Tobacco: Never Passive Smoke Exposure: Never Smokeless Tobacco: Never Comments Unknown Sex [...] Description 04/27/2025 3:15 PM EDT Office Visit [facility] [address] [place], [place] [phone] Vic Heredia MD [address] [place] [address] documented as of this encounter Visit Diagnoses Not on filedocumented in this encounter Care Teams Last Code Striper Relationship Specialty Start Date End Date Vic Heredia MD [address] [place] [phone] PCP - General Family Medicine 01/12/16 Fabricio Lauren [address] [place] [phone] Pulmonary Disease 01/06/25 documented as of this encounter
--- OUTSIDE RECORDS SUMMARY | 2025-01-13 14:04 | XMS_ITS | Encounter Summary ---
Author Organization [employer] Address [address] [facility] 7t [place] [address] Care Team Providers Care Clerk Checker Name Role Phone Name, Vic RAMOS Primary Care Provider [phone] Fabricio Lauren [phone] Reason for Visit * Reason Onset Date Comments Durable Medical Equipment 02/27/2023 Encounter Details Date Type Department Care Team ([facility] st Contact Info) Description 02/27/2023 Telephone [facility] [address] [place], [place] [phone] Name, MD Vic [address] [place] [address] Durable Medical Equipment Social History Tobacco Use Types Packs/Day Years Used Date Smoking Tobacco: Never Assessed Comments Unknown Sex and Gender Information Value Date Recorded Sex Assigned at Female 09/10/2022 10:23 AM EDT Legal Sex Female 10:23 AM EDT Gender Identity Female 09/10/2022 10:23 AM EDT Sexual Orientation Straight 09/10/2022 10 :23 AM EDT documented as of this encounter Miscellaneous Notes * Telephone Encounter - Keren Yancey - 02/27/2023 2:58 PM EDT Script for panty liners generated for signature * Telephone Encounter - Thong Maldonado - 02/27/2023 11:23 AM EDT Tc from molly with [facility] requesting a script for thin pantie liner needs 180 per months [facility] fax # [phone] documented in this encounter Plan of Treatment Upcoming Encounters Date Type Department Care Team (Late st Contact Info) Description 04/27/2025 3:15 PM EDT Office Visit [facility] [address] [place] [address] Name, MD Vic [address] [place] [address] documented as of this encounter Visit Diagnoses Not on filedocumented in this encounter Care Teams Clerk Checker Relationship Specialty Start Date End Date Name, MD Vic [address] [place] [address] PCP - General Family Medicine 01/12/16 Fabricio Lauren [address] [place] [address] Pulmonary Disease 01/06/25 documented as of this encounter
--- OUTSIDE RECORDS SUMMARY | 2025-01-13 14:04 | XMS_ITS | Encounter Summary ---
Author Organization [employer] [facility] Address [address] [facility] 7t [place] [address] Care Team Providers Care Immigration Manager Name Role Phone NameVic MD Primary Care Provider [phone] Fabricio Lauren Unavailable [phone] Encounter Details Date Type Department Care Team (Latest Contact Info) Description 11/13/2021 Abstract [facility] Dental, Provider, DDS Social History Tobacco [...] Description 04/27/2025 3:15 PM EDT Office Visit [facility] MEDICINE [address] [place] [address] Vic Heredia MD [address] [place] [address] documented as of this encounter Visit Diagnoses Not on filedocumented in this encounter Care Teams Immigration Manager Relationship Specialty Start Date End Date Vic Heredia MD [address] [place] [address] PCP - General Family Medicine 01/12/16 Fabricio Lauren [address] [place] [phone] Pulmonary Disease 01/06/25 documented as of this encounter
--- OUTSIDE RECORDS SUMMARY | 2025-01-13 14:04 | XMS_ITS | Encounter Summary ---
Author Organization [employer] Address [address] [facility] 7t [place] [address] Care Team Providers Care Iuss Acoustic Analyst Name Role Phone Name, Vic RAMOS Primary Care Provider Fabricio Lauren [phone] Reason for Visit * Reason Comments Med Refill Encounter Details Date Type Department Care Team ([facility] st Contact Info) Description 01/06/2025 Refill [facility] [address] [place], [place] [phone] Name, MD Vic [address] [place] [address] Hypertension, unspecified type Social History Tobacco Use Types [...] 3:15 PM EDT Office Visit [facility] [address] [place] [phone] Name, MD Vic [address] [place] [address] documented as of this encounter Visit Diagnoses Diagnosis Hypertension, unspecified type documented in this encounter Additional Health Concerns Assessment Noted Time PHQ-9 Depression Total Score: 9 01/22/20 24 11:20 AM EDT documented as of this encounter Care Teams Iuss Acoustic Analyst Relationship Specialty Start Date End Date Name, MD Vic [address] [place] [address] PCP - General Family Medicine 01/12/16 Fabricio Lauren [address] [place] [address] Pulmonary Disease 01/06/25 documented as of this encounter
--- OUTSIDE RECORDS SUMMARY | 2025-01-13 14:04 | XMS_ITS | Encounter Summary ---
Author Organization [employer] [facility] Address [address] [facility] 7t [place] [address] Care Team Providers Care Retail Chain Store Area Supervisor Name Role Phone NameVic MD Primary Care Provider [phone] Fabricio Lauren [phone] Encounter Details Date Type Department Care Team (Late st Contact Info) Description 04/15/2023 Abstract [facility] MEDICINE [address] [place] [phone] NameVic MD [address] [place] [phone] Social History Tobacco Use Types Packs/Day Years [...] 3:15 PM EDT Office Visit [facility] [address] [place] [address] [phone] Vic Heredia MD [address] [place] [address] documented as of this encounter Procedures Procedure Name Priority Date/Time Associated Diagnosis Comments COLONOSCOPY Routine 08/09/2017 10:29 AM EDT documented in this encounter Results * Hm Colonoscopy (08/09/2017 10:29 AM EDT) Colonoscopy Normal Normal Narrative Yazmin Williamson - 08/09/2017 10:29 AM EDT Recommended 5 year follow up us Historical Provider HEALTH MAINTENANCE Final Result documented in this encounter Visit Diagnoses Not on filedocumented in this encounter Care Teams Retail Chain Store Area Supervisor Relationship Specialty Start Date End Date Name, MD Vic [address] [place] [address] [phone] PCP - General Family Medicine 01/12/16 Fabricio Lauren [address] [place] [address] [phone] Pulmonary Disease 01/06/25 documented as of this encounter
--- OUTSIDE RECORDS SUMMARY | 2025-01-13 14:04 | XMS_ITS | Clinical Summary ---
Author Organization [facility] it Address [address] [place] [address] Care Team Providers Care Sports Administrator Name Role Phone Unavailable Primary Care Provider Unavailabl e Social History Tobacco Use Types Packs/Day Years Used Date Smoking Tobacco: Never Assessed Comments Unknown Sex and Gender Information Value Date Recorded Sex Assigned at Not on file Legal Sex Female 9:14 AM EST Gender Identity Not on file Sexual Orientation Not on file Plan of Treatment Health Maintenance Due Date Last Done Comments Pneumococcal Vaccine: 50+ Years (1 of 1 - PCV) 2005 Zoster Vaccines (1 of 2) 2005 DTaP,Tdap,and Td Vaccines (2 - Td or Tdap) 05/25/2018 05/25/2008 Breast Cancer Screening 09/19/2019 09/19/2017 COVID-19 Vaccine ( - 2023-2 5 season) 2024 Influenza Vaccine (#1) 2024 5, 08/13/2013, 07/23/2011 RSV Immunization Patients 60 + Years Old (1 - 1-dose 75+ series) 2030 HIB Vaccines Aged Out No longer eligi [...] on patient's age to complete this topic MMR Vaccines Aged Out No longer eligi ble based on patient's age to complete this topic Meningococcal ACWY Vaccine Aged Out N o longer eligible based on patient's age to complete this topic Meningococcal B Vacine Aged Out No lo nger eligible based on patient's age to complete this topic RSV Immunization Patients Under 20 months Aged Out No longer eligible b ased on patient's age to complete this topic Varicella Vaccines Aged Out No longer eligible based on patient's age to complete this topic Procedures Procedure Name Priority Date/Time Associated Diagnosis Comments SCR MAMMO BI INCL CAD Routine 09/19/2017 2:26 PM EST Encounter for screening mammogram for malignant neoplasm of breast from Last 3 Months or Most Recently Relevant to Health Maintenance Results * SCR MAMMO BI INCL CAD (09/19/2017 2:26 PM EST) Anatomical Region Laterality Modality Radiographic Celine ging 09/18/2016 2:42 PM EST Narrative 09/20/2017 10:06 AM EST This is a summary report. The complete report is available in the patient's medical record. If you cannot access the medical record, please contact the sending organization for a detailed fax or copy. Full field digital screening mammography, reviewed with CAD and compared to previous. ??The breasts are composed of fatty and fibroglandular tissue. ??No suspicious mass, architectural distortion or suspicious calcifications are identified. IMPRESSION: : No mammographic evidence of malignancy. BIRADS 1-Negative; N. 5 year breast cancer risk assessment 0.7 % Lifetime breast cancer risk assessment 3.5 % Breast cancer risk category Low (<15%) Procedure Note Roni Mccollum MD - 12/13/2023 This is a summary report. The complete report is available in thepatient's medical record. If you cannot access the medical record, pleasecontact the sending organization for a detailed fax or copy. Full field digital screening mammography, reviewed with CAD and comparedto previous. The breasts are composed of fatty and fibroglandular tissue.No suspicious mass, architectural distortion or suspicious calcificationsare identified. IMPRESSION: : No mammographic evidence of malignancy. BIRADS 1-Negative; N. 5 year breast cancer risk assessment 0.7 % Lifetime breast cancer risk assessment 3.5 % Breast cancer risk category Low (<15%) Lotus Noriega MD IMG XR PROCEDURES Final Result from Last 3 Months or Most Recently Relevant to Health Maintenance
== END 2025-01-13 11:36 | disposition home or self-care (01) ==
LOC: HO.HHCX 11:35
PROVIDERS: Visit Provider Internal Medicine Geriatric Medicine
DX: R05.3 Chronic cough (principal)
CPT/HCPCS: 71046

== ENCOUNTER → 2025-01-13 11:35 | Outpatient (BNV) | payer OTHER, SELFPAY | PROVIDERS: Visit Provider Radiology Diagnostic Radiology | DX: R05.9 Cough, unspecified (principal) | CPT/HCPCS: 71046 ==

== ENCOUNTER 2025-01-26 09:32 | Outpatient (AMB) | payer OTHER, SELFPAY ==
--- NOTE | 2025-01-26 09:49 | A.OFFVIS_ITS ---
Vital Signs 01/26/25 09:50 Height 4 ft 11 in Weight 200 lb 9.93 oz BMI 40.5 BP 120/74 Blood Pressure Location Rt brachial Position Sitting Pulse 102 H Pulse Source Pulse Oximeter Pulse Oximetry (%) 98 Oxygen Delivery Method Room Air Intake Visit Reasons: cough Allergies oxycodone Allergy (Intermediate, Verified 09/21/24 14:11) Nausea and Vomiting aspirin Allergy (Mild, Verified 09/21/24 14:11) Hives lisinopril Allergy (Mild, Verified 09/21/24 14:11) Cough morphine Allergy (Mild, Verified 09/21/24 14:11) Wheezing tramadol Allergy (Mild, Verified 09/21/24 14:11) Unknown HPI Comments Details: The patient is a 70 year woman with a known history of in adrenal adenoma who presents here after developing worsening cough. The patient states that several months ago she developed a viral syndrome. After she continued having a cough. The cough is moderate severity. Was congested in nature with yellow phlegm. S he had been evaluated about 4 months ago and she was given antibiotics in addition to respiratory inhalers. Although only partially helpful. In the meantime she did have a chest x-ray which I personally reviewed demonstrating no acute disease. She has not had any pulmonary function studies. She is not aware of any allergies and she does not have any pets. No significant changes in her household. On examination she does have some rhonchi. Specially when she coughs. She does have an about of bronchitis. It may be asthmatic bronchitis or reactive airway disease. Will go start her on maintenance therapy to see if we can improve her symptoms and treat her with doxycycline case she has a smoldering infection. Will have her follow-up in 2-3 months after her PFTs. 09/21/2024 the patient is here for a pulmonary follow-up visit. Overall the patient has been doing okay. She does complaint of worsening cough chest congestion primarily at nighttime. She did not undergo her pulmonary function studies. She sometimes uses the Symbicort but she sometimes gets confused was which is the rescue inhaler in which the maintenance inhaler. At this point will try to maximize her respiratory therapy by switching over to Trelegy therefore be easier for her just to take 1 inhaler in the morning and have complete coverage throughout the day. She can use her rescue inhaler as needed. She needs to have her PFTs rescheduled and will follow-up in 6 months. The patient has any worsening symptoms prior to that she will call for an earlier assessment. 01/26/2025 the patient is here for sick visit. Apparently she was in her usual state health until several weeks ago when she developed the flu. Positive sick contacts in the household. She started developing decreased sense of smell and chest congestion shortness breath. She went to the ER where she was tested positive for the flu and she was given prednisone and some antibiotics. The patient took them but she was not any better. He complained of raspiness of the voice and hoarseness and coughing chest congestion. Moderate severity. Having hard time sleeping. She went back to primary care and she was given additional prednisone. She continues on her Trelegy inhaler. Seems to be helpful. Therefore she can for an evaluation. Seems to have more of a upper airway respiratory issue likely sinusitis resulting in postnasal drip and causing some laryngitis. Her lungs are clear. She did have a chest x-ray on 01/13/2025 which I personally reviewed also demonstrating no evidence of any acute process. Therefore, will go ahead and treat her for sinusitis with Augmentin. She has already been a few courses of prednisone will hold off at this time. She does benefit from a cough suppressant. She will continue with the Trelegy. If the patient is no better she will call for an earlier assessment otherwise will follow-up in 4-6 months. [facility] Medical History (Updated 07/02/24 @ 23:04 by Fabricio Lauren MD) Dyspnea Chronic cough Adrenal incidentaloma Urticaria History of COVID-19 (~01/22/24) Essential hypertension MICHAEL-inhibitor cough Osteoarthritis of knee Urine incontinence Osteoporosis Low back pain, unspecified Obesity Depression Anxiety Surgical History Hx of total knee arthroplasty (~09/23/23) Social History (Updated 09/21/24 @ 14:11 by Alexus Newberry LPN) Patient Tobacco Use Status: Never used Tobacco Review of Systems Const Denies fever(s) Eyes Reports no additional complaints ENT Reports nasal congestion and Reports nasal discharge Card Denies chest pain, Denies palpitations and Reports dyspnea on exertion Resp Reports cough, Reports dyspnea on exertion and Reports wheezing GI Denies bloating Musc Reports no additional complaints Skin/Breast Denies rash Endo Denies palpitations Jose L/Lymph Denies lymphadenopathy Aller/Immun Reports wheezing Physical Exam Vital Signs: Last Vital Signs Pulse 102 H 01/26/25 09:50 BP 120/74 01/26/25 09:50 Pulse Ox 98 01/26/25 09:50 Oxygen Delivery Method Room Air 01/26/25 09:50 BMI result Body Mass Index 40.5 Const General: comfortable HEENT Head: Yes normocephalic Neck Neck: Yes supple Chest Chest palpation & inspection: normal inspection of the chest Resp Effort & Inspection: normal respiratory effort and prolonged expiratory phase Auscultation: no rales, no rhonchi, no wheezes and diminished lung sounds Cardio Heart sounds: S1 normal heart sound present and S2 normal heart sound present GI Palpation (GI): Soft to palpation Skin General skin exam: no rashes or lesions noted Extrem General: Yes no clubbing, cyanosis or edema Assessment & Plan Assessment & Plan (1) Chronic cough: Code(s): R05.3 - Chronic cough Category: Medical (2) Dyspnea: Code(s): R06.00 - Dyspnea, unspecified Category: Medical Qualifiers: Dyspnea type: dyspnea on exertion Qualified Code(s): R06.09 - Other forms of dyspnea (3) Bronchitis: Code(s): J40 - Bronchitis, not specified as acute or chronic Category: Medical Plan Trelegy 200 VANIA as needed start Augmentin cough medicine PFTs once better F/U 4-6 months Medications: New amoxicillin-pot clavulanate 875-125 mg 1 tab PO BID 20 tabs 0RF 10 days dextromethorphan-guaifenesin 5-100 mg/5 mL 10 mL PO Q6H PRN 500 mL 0RF cough 30 days Coding Level of Care Code Est Pt Level 4 (32886) Diagnoses Chronic cough R05.3 Dyspnea on exertion R06.09 Dyspnea type: dyspnea on exertion Bronchitis J40 Time Spent (min) 16
[2025-01-26 09:50] VITALS: BP 120/74; PULSE 102; O2SAT 98; BMI 40.5
--- OUTSIDE RECORDS SUMMARY | 2025-01-26 10:28 | XMS_ITS | Encounter Summary ---
Author Organization [employer] Address [address] [facility] 7t [place] [address] Care Team Providers Care Lasting Floorworker Name Role Phone Name, Vic RAMOS Primary Care Provider [phone] Fabricio Lauren [phone] Encounter Details Date Type Department Care [...] Description 04/27/2025 3:15 PM EDT Office Visit [facility] MEDICINE [address] [place] [address] Name, MD Vic [address] [place] [phone] documented as of this encounter Visit Diagnoses Not on filedocumented in this encounter Additional Health Concerns Assessment Noted Time PHQ-9 Depression Total Score: 0 01/13/20 25 2:41 PM EST documented as of this encounter Care Teams Lasting Floorworker Relationship Specialty Start Date End Date Name, MD Vic [address] [place] [phone] PCP - General Family Medicine 01/12/16 Fabricio Lauren [address] [place] [phone] Pulmonary Disease 01/06/25 documented as of this encounter
--- OUTSIDE RECORDS SUMMARY | 2025-01-26 10:28 | XMS_ITS | Clinical Summary ---
Author Organization [employer] Address 75 [facility] 7t [place] [address] Care Team Providers Care Beer Coil Cleaner Name Role Phone Name, Vic RAMOS Primary Care Provider [phone] Fabricio Luaren [phone] Allergies Active Allergy Reactions Criticality Noted [...] BEDTIME 90 tablet 1 01/08/20 25 Active amLODIPine (Norvasc) 5 MG tabletIndicati [...] daily for 5 days. 10 capsule 01/06/20 25 025 predniSONE (Deltasone) 20 MG tablet Take 2 tablets (40 mg) by mouth Once per day for 5 days. 10 tablet 01/13/20 025 Active Problems Problem Noted Date Diagnosed Date Dyspnea 01/06/2025 Assessment & Plan (01/06/2025 9:27 AM EST): Long hx of recurrent coughing and dyspnea. Has seen proposal director, Dr. Lauren. Had PFTs ordered in 07/2024 [...] likely bronchiolitis. Has follow up PFTs and proposal director. -prescribed Prednisone 20 mg BID for 5 days. Bronchitis 08/17/2024 Assessment & Plan (08/17/2024 10:35 AM EDT): The patient was prescribed a nebulizer from the [employer] vendor [employer]. Instructions on how to use [...] Encounters Date Type Department Care Team Description 01/21/2025 Telephone [facility] [place] [address] NameVic MD 01/13/2025 Telephone [facility] [address] [place] [address] Name, MD Vic Results 01/12/2025 2:30 PM EST Office Visit [facility] [place] [address] NameVic MD Chronic coughing (Primary Dx); Flu; Lung crackles 01/12/2025 Travel 01/08/2025 Refill [facility] [place] [facility] [place] [address] NameVic MD 01/07/2025 Refill [facility] [address] [place] [address] Name, MD Vic 01/06/2025 9:00 AM EST Office Visit [facility] [address] [address] Teresa Santamaria MD Influenza A (Primary Dx); Bronchiolitis; Dyspnea, unspecified type 01/06/2025 Refill [facility] [address] [place] [address] NameVic MD Hypertension, unspecified type 11/12/2024 Telephone [facility] [address] [place] [address] Otto Silva [place] jan recalls from Last [...] your housing situation today? I have shirley sing [address] you li [...] Description 04/27/2025 3:15 PM EDT Office Visit [facility] [address] [place] [address] Name, MD Vic [address] [place] [address] Health Maintenance Due Date Last Done Comments [...] Additional history exists Dental X-Ray: [employer] 11/14/2022 11/13/19, 2019, 09/23/2015 COVID-19 Vaccine ( season) 2024 [...] AM EST Narrative 01/13/2025 12:20 PM EST ?[facility] ?[address] ?[place] [address] ?XRay Report ? Signed ? Patient: Sauceda,Maryann V ?MR#: [id number] ?? [id number] ? : 1955 ?Acct:[id number] ? Age/Sex: 69 / F ?ADM Date: 03/05/25 ? Loc: HO.HHCX ? Attending Dr: Vic Heredia MD ? Ordering Physician: Vic Heredia MD ?? Date of Service: 01/13/25 ?? Procedure(s): XR chest 2V ?? Accession Number(s): [id number] ? cc: Vic Heredia MD ? EXAMINATION: [...] DD/ 1135 ? TD/TT: 01/13/25 1200 ? Washer Hand: ? Procedure Note Conrad, Image - 01/13/2025 [place] [address] XRay Report Signed Patient: Maryann Sauceda VMR#: [id number] : 5Acct:[id number] Age/Sex: 69 / FADM Date: 01/13/25 Loc: HO.HHCX Attending Dr: Vic Heredia MD Ordering Physician: Vic Heredia MD Date of Service: 01/13/25 Procedure(s): XR chest 2V Accession Number(s): [id number] cc: Vic Heredia MD EXAMINATION: XR CHEST [...] 01/13/25 1217 DD/ 1135 TD/TT: 01/13/25 1200 Washer Hand: Vic Heredia MD IMG XR PROCEDURES Edited Result - Final * Influenza B (ID NOW Rapid Molecular) (01/06/2025 9:12 AM EST) Influenza B Negative Negative, Indeterminate [facility] Swab 01/06/2025 9:12 AM EST Teresa Santamaria MD POINT OF CARE TEST ENTER/E DIT ORDERABLES Final Result Performing Organization Address [facility] Co de Phone Number [facility] [address] [place] [phone] * (ABNORMAL) Influenza A (ID NOW Rapid Molecular) (01/06/2025 9:12 AM EST) Influenza A Positive( A) Negative, Indeterminate [facility] Swab 01/06/2025 9:12 AM EST Teresa Santamaria MD POINT OF CARE TEST ENTER/E DIT ORDERABLES Final Result Performing Organization Address [facility] Co de Phone Number [facility] [address] [place] [phone] * POCT Rapid COVID Ag (01/06/2025 9:05 AM EST) Rapid COVID Ag Negative Swab 01/06/2025 9:05 AM EST Teresa Santamaria MD POINT OF CARE TEST ENTER/E DIT ORDERABLES Final Result * BI Mammogram Screening Tomosynthesis Bilateral (12/18/2023 10:42 AM EST) Anatomical Region Laterality Modality Breast Bilateral Mammography 12/18/2023 10:4 2 AM EST Narrative 01/11/2024 9:49 PM EST ? [facility] ? [address] ?[place] [address] ? Mammography Report ? Signed ? Patient: Maryann Sauceda V ?MR#: [id number] ?? [id number] ? : 1955 ?Acct:[id number] ? Age/Sex: 68 / F ?ADM Date: 12/18/23 ? Loc: HO.MAMMO ? Attending Dr: Vic Name MD ? Ordering Physician: Name,Vic MD ?Results: 1Negative ? Date of Service: 12/18/23 ?Follow Up: 1 Year From Orig ?? inal Mammogram ? Procedure(s): MM tomosynthesis screening BI ?? Accession Number(s): [id number] ? cc: Name,Vic RAMOS ? EXAMINATION: ?? MM SCREENING DIGITAL BREAST TOMOSYNTHESIS, BILATERAL ? CLINICAL INFORMATION: ? Screening. Asymptomatic. ? COMPARISON: ?? Mammography: This study is compared with prior exams dating back to ?? 2016. ? TECHNIQUE: ?? Digital breast tomosynthesis is [...] MD in OV> ? 01/11/242145 ? DD/ 104 ? TD/TT: ? Washer Hand: ? Procedure Note Mahi Martines - 01/11/2024 [facility] [address] [place] [address] Dr. [place], [place] [address] Mammography Report Signed Patient: Maryann Sauceda R#: [id number] : 5Acct:[id number] Age/Sex: 68 / FADM Date: 12/18/23 Loc: FROY Attending Dr: Vic Heredia MD Ordering Physician: Vic Herediaesults: 1Negative Date of Service: 12/18/23Follow Up: 1 Year From Orig inal Mammogram Procedure(s): MM tomosynthesis screening BI Accession Number(s): [id number] cc: Name,Vic RAMOS EXAMINATION: MM SCREENING DIGITAL BREAST TOMOSYNTHESIS, BILATERAL [...] in OV> 01/11/24 2146 DD/ 1042 TD/TT: Washer Hand: Vic Heredia MD [place] BI PROCEDURES Final Result * HEPATITIS C AB W/REFL TO HCV RNA, QN, PCR (01/23/2022 11:58 AM EDT) HEPATITIS C ANTIBODY NON-REACT [facility] NON-REACT [facility] INDEX 0.02 <1.00 [facility] Comment: ?? HCV antibody was non-reactive. There is no laboratory ?? evidence of HCV infection. ?? In most cases, no further action is required. However, if recent HCV exposure is suspected, a test for HCV RNA (test code 01164) is suggested. ?? For additional information please refer to http://education.The Scene/faq/AUQ14l1 (This link is being provided for informational/ educational purposes only.) ?? 01/23/2022 11:5 8 AM EDT us Vic Name HISTORICAL/NON ORDERABLE LABS Fi nal Result [facility] [address] * Hm Colonoscopy (08/09/2017 10:29 AM EDT) Colonoscopy Normal Normal Narrative Yazmin Williamson - 08/09/2017 10:29 AM EDT Recommended 5 year follow up us Historical Provider HEALTH MAINTENANCE Final Result from Last 3 Months or Most Recently Relevant to Health Maintenance [place] [address] [address] [place] [address] - [facility] - [facility] Care Teams Beer Coil Cleaner Relationship Specialty Start Date End Date Name, MD [facility] [address] [place] [address] PCP - General Family Medicine 01/12/16 Fabricio Lauren [address] [place] [address] Pulmonary Disease 01/06/25
--- OUTSIDE RECORDS SUMMARY | 2025-01-26 10:28 | XMS_ITS | Encounter Summary ---
Author Organization [facility] Address 75 [facility] 7t [place] [address] Care Team Providers Care Chemical Laboratory Assistant Name Role Phone NameVic MD Primary Care Provider [phone] Fabricio Lauren [phone] Encounter Details Date Type Department Care Team (Late st Contact Info) Description 04/15/2023 Abstract [facility] [address] [place] [address] [phone] NameVic MD [address] [place] [address] Social History Tobacco Use Types Packs/Day Years [...] Description 04/27/2025 3:15 PM EDT Office Visit [facility] [address] [place] [address] [phone] Vic Heredia MD [address] [place] [address] documented as of this encounter Procedures [...] on filedocumented in this encounter Care Teams Chemical Laboratory Assistant Relationship Specialty Start Date End Date Name, MD Vic [address] [place] [address] [phone] PCP - General Family Medicine 01/12/16 Fabricio Lauren [address] [place] [address] [phone] Pulmonary Disease 01/06/25 documented as of this encounter
--- OUTSIDE RECORDS SUMMARY | 2025-01-26 10:28 | XMS_ITS | Encounter Summary ---
Author Organization [facility] Address 75 [facility] 7t [place] [address] Care Team Providers Care Boiler/Chiller Technician Name Role Phone Name, Vic RAMOS Primary Care Provider [phone] Fabricio Lauren [phone] Encounter Details Date Type Department Care Team (Late st Contact Info) Description 03/11/2023 Orders Only [facility] [address] [place] [address] [phone] An Rico LPN Social History Tobacco Use [...] Description 04/27/2025 3:15 PM EDT Office Visit [facility] [address] [place], [place] [phone] Vic Heredia MD [address] [place] [address] documented as of this encounter Visit Diagnoses Not on filedocumented in this encounter Care Teams Boiler/Chiller Technician Relationship Specialty Start Date End Date Vic Heredia MD [address] [place] [address] PCP - General Family Medicine 01/12/16 Fabricio Lauren [address] [place] [address] Pulmonary Disease 01/06/25 documented as of this encounter
--- OUTSIDE RECORDS SUMMARY | 2025-01-26 10:28 | XMS_ITS | Encounter Summary ---
Author Organization [employer] Address [address] [facility] [address] 7t [place] [address] Care Team Providers Care Public Services Librarian Name Role Phone Name, Vic RAMOS Primary Care Provider [phone] Fabricio Lauren [phone] Encounter Details Date Type Department Care Team (Late st Contact Info) Description 01/21/[address] [facility] [address] [place], [place] [phone] Name, MD Vic [address] [place] [address] Social History Tobacco Use Types Packs/Day Years [...] 3:15 PM EDT Office Visit [facility] [address] [place] [address] Name, MD Vic [address] [place] [address] documented as of this encounter Visit Diagnoses Not on filedocumented in this encounter Additional Health Concerns Assessment Noted Time PHQ-9 Depression Total Score: 0 01/13/20 25 2:41 PM EST documented as of this encounter Care Teams Public Services Librarian Relationship Specialty Start Date End Date Name, MD Vic [address] [place] [phone] PCP - General Family Medicine 01/12/16 Fabricio Lauren [address] [place] [address] Pulmonary Disease 01/06/25 documented as of this encounter
--- OUTSIDE RECORDS SUMMARY | 2025-01-26 10:28 | XMS_ITS | Encounter Summary ---
Author Organization [employer] Address 75 [facility] 7t [place] [address] Care Team Providers Care Corporate Consultant Name Role Phone Name, Vic RAMOS Primary Care Provider [phone] Fabricio Lauren Unavailable [phone] Encounter Details Date Type Department Care Team (Late st Contact Info) Description 12/27/2022 Orders Only [facility] [address] [place] [address] Katrin Zaldivar LPN Social History Tobacco Use [...] Description 04/27/2025 3:15 PM EDT Office Visit [facility] [address] [place] [address] NameVic MD [address] [place] [address] documented as of this encounter Visit Diagnoses Not on filedocumented in this encounter Care Teams Corporate Consultant Relationship Specialty Start Date End Date Vic Heredia MD [address] [place] [address] PCP - General Family Medicine 01/12/16 Fabricio Lauren [address] [place] [address] Pulmonary Disease 01/06/25 documented as of this encounter
--- OUTSIDE RECORDS SUMMARY | 2025-01-26 10:28 | XMS_ITS | Encounter Summary ---
Author Organization [facility] Address 75 [facility] 7t [place] [address] Care Team Providers Care Cooling Pipe Inspector Name Role Phone NameVic MD Primary Care Provider [phone] Fabricio Lauren Unavailable [phone] Encounter Details Date Type Department Care Team (Latest Contact Info) Description 2019 Abstract [facility] Dental, Provider, DDS Social History Tobacco [...] Description 04/27/2025 3:15 PM EDT Office Visit [facility] [address] [place] [address] Vic Heredia MD [address] [place] [address] documented as of this encounter Visit Diagnoses Not on filedocumented in this encounter Care Teams Cooling Pipe Inspector Relationship Specialty Start Date End Date Vic Heredia MD [address] [place] [address] PCP - General Family Medicine 01/12/16 Fabricio Lauren [address] [place] [address] Pulmonary Disease 01/06/25 documented as of this encounter
--- OUTSIDE RECORDS SUMMARY | 2025-01-26 10:28 | XMS_ITS | Encounter Summary ---
Author Organization [employer] Address 75 [facility] 7t [place] [address] Care Team Providers Care Corsage Maker Name Role Phone Name, Vic RAMOS Primary Care Provider [phone] Fabricio Lauren [phone] Reason for Visit * Reason Onset Date Comments Durable Medical Equipment 02/27/2023 Encounter Details Date Type Department Care Team ([place] [facility] st Contact Info) Description 02/27/2023 Telephone [facility] [address] [place], [place] [phone] Name, MD Vic [address] [place] [address] Durable Medical Equipment Social History Tobacco Use [...] needs 180 per months [facility] fax # [phone] documented in this encounter Plan of Treatment Upcoming Encounters Date Type Department Care Team (Late st Contact Info) Description 04/27/2025 3:15 PM EDT Office Visit [facility] [address] [place] [address] Name, MD Vic [address] [place] [address] documented as of this encounter Visit Diagnoses Not on filedocumented in this encounter Care Teams Corsage Maker Relationship Specialty Start Date End Date Name, MD Vic [address] [place] [address] PCP - General Family Medicine 01/12/16 Fabricio Lauren [address] [place] [address] Pulmonary Disease 01/06/25 documented as of this encounter
--- OUTSIDE RECORDS SUMMARY | 2025-01-26 10:28 | XMS_ITS | Encounter Summary ---
Author Organization [facility] Address 75 [facility] 7t [place] [address] Care Team Providers Care Pick Pack Worker Name Role Phone Name, Vic RAMOS Primary Care Provider [phone] Fabricio Lauren [phone] Encounter Details Date Type Department Care Team (Late st Contact Info) Description 09/24/2023 Orders Only [facility] [address] [place] [address] [phone] Raghavendra West MD [address] [place] [address] Social History Tobacco Use Types Packs/Day Years [...] Description 04/27/2025 3:15 PM EDT Office Visit [facility] [address] [place], [place] [phone] Vic Heredia MD [address] [place] [address] documented as of this encounter Visit Diagnoses Not on filedocumented in this encounter Care Teams Pick Pack Worker Relationship Specialty Start Date End Date NameVic MD [address] [place] [address] PCP - General Family Medicine 01/12/16 Fabricio Lauren [address] [place] [address] Pulmonary Disease 01/06/25 documented as of this encounter
--- OUTSIDE RECORDS SUMMARY | 2025-01-26 10:28 | XMS_ITS | Encounter Summary ---
Author Organization [employer] Address 75 [facility] 7t [place] [address] Care Team Providers Care Lobbyist Name Role Phone Name, Vic RAMOS Primary Care Provider [phone] Fabricio Lauren [phone] Reason for Visit * Reason Comments Follow-up Encounter Details Date Type Department Care Team ([facility] st Contact Info) Description 01/12/2025 2:30 PM EST Office Visit [facility] [address] [place], [place] [phone] Name, MD Vic [address] [place] [address] Chronic coughing (Primary Dx); Flu; Lung crackles [...] suggestive of bronchial hyperreactivity. She follows with [facility] pulmonary. Her respiratory symptoms worsened in the past few days. She was seen last week at walk-in clinic and was diagnosed with flu. She was prescribed a short course of prednisone that helped a little bit. She already finished her course of Tamiflu. She has Symbicort and albuterol at home. She has an appointment with [facility] pulmonary already scheduled for next month. Review [...] Description 04/27/2025 3:15 PM EDT Office Visit [facility] [place] [address] Name, [place] [address] documented as of this encounter Procedures Procedure Name Priority Date/Time Associated Diagnosis Comments XR CHEST 2 VIEWS Routine 01/13/2025 11:3 5 AM EST Chronic coughing documented in this encounter Results * XR Chest 2 Views (01/13/2025 11:35 AM EST) Anatomical Region Laterality Modality Chest Radiographic Celine ging 01/13/2025 11:3 5 AM EST Narrative 01/13/2025 12:20 PM EST ?[facility] ?Steve [address]. ?[place] [address] ?XRay Report ? Signed ? Patient: Maryann Sauceda V ?MR#: [id number] ?? [id number] ? : 1955 ?Acct:[id number] ? Age/Sex: 69 / F ?ADM Date: 01/13/25 ? Loc: HO.HHCX ? Attending Dr: Vic Heredia MD ? Ordering Physician: Vic Heredia MD ?? Date of Service: 01/13/25 ?? Procedure(s): XR chest 2V ?? Accession Number(s): [id number] ? cc: Vic Heredia MD ? EXAMINATION: [...] DD/ 1135 ? TD/TT: 01/13/25 1200 ? Bed Operator: ? Procedure Note Donotuseinterpreter, Image - 01/13/2025 [facility] [address] [place] [address] XRay Report Signed Patient: Maryann Sauceda VMR#: [id number] : 5Acct:[id number] Age/Sex: 69 / FADM Date: 01/13/25 Loc: HO.HHCX Attending Dr: Vic Heredai MD Ordering Physician: Vic Heredia MD Date of Service: 01/13/25 Procedure(s): XR chest 2V Accession Number(s): [id number] cc: Vic Heredia MD EXAMINATION: XR CHEST [...] by: Yariel Montgomery MD 01/13/2025 12:17 PM [facility] [place] Dictated By: Yariel Benavides MD Signed By: <Electronically signed by Yariel Pickett MDin OV> 01/13/25 1217 DD/ 1135 TD/TT: 01/13/25 1200 Bed Operator: Vic Heredia MD IMG XR PROCEDURES Edited Result - Final documented in this encounter Visit Diagnoses Diagnosis Chronic coughing- Primary Cough Flu Influenza with other respiratory manifestations Lung crackles documented in this encounter Additional Health Concerns Assessment Noted Time PHQ-9 Depression Total Score: 0 01/13/20 2:41 PM EST documented as of this encounter Care Teams Lobbyist Relationship Specialty Start Date End Date Name, MD Vic [address] [place] [address] PCP - General Family Medicine 01/12/16 Fabricio Lauren [address] [place] [address] Pulmonary Disease 01/06/25 documented as of this encounter
--- OUTSIDE RECORDS SUMMARY | 2025-01-26 10:28 | XMS_ITS | Encounter Summary ---
Author Organization [employer] Address 75 [facility] 7t [place] [address] Care Team Providers Care Counter Hop Name Role Phone Name, Vic RAMOS Primary Care Provider [phone] Fabricio Lauren [phone] Reason for Visit * Reason Comments Med Refill Encounter Details Date Type Department Care Team ([facility] st Contact Info) Description 01/08/2025 Refill [facility] [address] [place], [place] [phone] Name, MD Vic [address] [place] [address] Social History Tobacco Use Types Packs/Day Years [...] 3:15 PM EDT Office Visit [facility] [address] [place] [address] Name, MD Vic [address] [place] [address] documented as of this encounter Visit Diagnoses Not on filedocumented in this encounter Additional Health Concerns Assessment Noted Time PHQ-9 Depression Total Score: 9 01/22/20 24 11:20 AM EDT documented as of this encounter Care Teams Counter Hop Relationship Specialty Start Date End Date Name, MD Vic [address] [place] [address] PCP - General Family Medicine 01/12/16 Fabricio Lauren [address] [place] [address] Pulmonary Disease 01/06/25 documented as of this encounter
--- OUTSIDE RECORDS SUMMARY | 2025-01-26 10:28 | XMS_ITS | Encounter Summary ---
Author Organization [facility] Address 75 [facility] 7t [place] [address] Care Team Providers Care Home Aide Name Role Phone NameVic MD Primary Care Provider [phone] Fabricio Lauren [phone] Reason for Visit * Reason Comments Med Refill Encounter Details Date Type Department Care Team (Late st Contact Info) Description 03/09/2023 Refill [facility] [address] [place] [address] NameVic MD [address] [place] [address] [phone] Social History Tobacco Use Types Packs/Day Years [...] Description 04/27/2025 3:15 PM EDT Office Visit [facility] [address] [place] [address] [phone] Vic Heredia MD [address] [place] [address] [phone] documented as of this encounter Visit Diagnoses Not on filedocumented in this encounter Care Teams Home Aide Relationship Specialty Start Date End Date Name, MD Vic [address] [place] [address] PCP - General Family Medicine 01/12/16 Fabricio Lauren [address] [place] [address] Pulmonary Disease 01/06/25 documented as of this encounter
--- OUTSIDE RECORDS SUMMARY | 2025-01-26 10:28 | XMS_ITS | Clinical Summary ---
Author Organization [facility] it Address [address] [place] [address] Care Team Providers Care Band Splicer Name Role Phone Unavailable Primary Care Provider [...]
--- OUTSIDE RECORDS SUMMARY | 2025-01-26 10:28 | XMS_ITS | Encounter Summary ---
Author Organization [employer] Address 75 [facility] 7t [place] [address] Care Team Providers Care Lining Machine Tender Name Role Phone Name, Vic RAMOS Primary Care Provider [phone] Fabricio Lauren [phone] Reason for Visit * Reason Comments Med Refill Encounter Details Date Type Department Care Team ([facility] st Contact Info) Description 01/06/2025 Refill [facility] [address] [place], [place] [phone] Name, MD Vic [address] [place] [address] Hypertension, unspecified type Social History Tobacco Use [...] 04/27/2025 3:15 PM EDT Office Visit [facility]INE [address] [place] [phone] Name, MD Vic [address] [place] [address] documented as of this encounter Visit Diagnoses Diagnosis Hypertension, unspecified type documented in this encounter Additional Health Concerns Assessment Noted Time PHQ-9 Depression Total Score: 9 01/22/20 24 11:20 AM EDT documented as of this encounter Care Teams Lining Machine Tender Relationship Specialty Start Date End Date Name, MD Vic [address] [place] [address] PCP - General Family Medicine 01/12/16 Fabricio Lauren [address] [place] [address] Pulmonary Disease 01/06/25 documented as of this encounter
--- OUTSIDE RECORDS SUMMARY | 2025-01-26 10:28 | XMS_ITS | Encounter Summary ---
Author Organization [employer] Address [address] [employer] [address]t [place] [address] Care Team Providers Care Cloth Washer Back Tender Name Role Phone Name, Vic RAMOS Primary Care Provider [phone] Fabricio Lauren [phone] Reason for Visit * Reason Comments Asthma Encounter Details Date Type Department Care Team ([facility] st Contact Info) Description 01/06/2025 9:00 AM EST Office Visit [facility] [address] [place] [phone] Teresa Santamaria MD [address] [place], [place] [phone] Influenza A (Primary Dx); Bronchiolitis; Dyspnea, unspecified [...] 01/06/2025 9:00 AM EST Pulmonary Function Test [address], [place] First floor behind registration. No inhalers 4 horas antes SaturdayFebruary 09 at 10:[address] Lauren, doctor de pulmone para mindy alvin [phone] documented in this encounter Progress Notes * [...] likely bronchiolitis. Has follow up PFTs and senior supplier quality engineer. -prescribed Prednisone 20 mg BID for 5 days. Dyspnea Long hx of recurrent coughing and dyspnea. Has seen senior supplier quality engineer, Dr. Lauren. Had PFTs ordered in 07/2024 [...] -Solidified appt. For PFTs. Has follow-up with [facility]. -Will treat with steroids and Tamiflu. -ER [...] likely bronchiolitis. Has follow up PFTs and senior supplier quality engineer. -prescribed Prednisone 20 mg BID for 5 [...] of recurrent coughing and dyspnea. Has seen senior supplier quality engineer, Dr. Lauren. Had PFTs ordered in 07/2024 In clinic today helped pt set up appointment to get PFTs done on . Given pre-arrival instructions. documented in this encounter Plan of Treatment Upcoming Encounters Date Type Department Care Team (Late st Contact Info) Description 04/27/2025 3:15 PM EDT Office Visit [facility] [address] [place] [phone] Name, MD Vic [address] [place] [address] documented as of this encounter Procedures Procedure [...] Rapid Molecular) (01/06/2025 9:12 AM EST) Pathologist [facility] Influenza B Negative Negative, Indeterminate [facility] Swab 01/06/2025 9:12 AM EST us Teresa Santamaria MD POINT OF CARE TEST ENTER/E DIT ORDERABLES Final Result Performing Organization Address [facility] [address]/[facility] Co de Phone Number [facility] [address] [place] [phone] * (ABNORMAL) Influenza A (ID NOW Rapid Molecular) (01/06/2025 9:12 AM EST) [facility] Influenza A Positive( A) Negative, Indeterminate [facility] Swab 01/06/2025 9:12 AM EST us Teresa Santamaria MD POINT OF CARE TEST ENTER/E DIT ORDERABLES Final Result Performing Organization Address [facility] [address]/[facility] Co de Phone Number [facility] [address] [place] [phone] * POCT Rapid COVID Ag (01/06/2025 9:05 AM EST) [facility] Rapid COVID Ag Negative Swab 01/06/2025 [...] documented as of this encounter Care Teams Cloth Washer Back Tender Relationship Specialty Start Date End Date Name, MD Vic [address] [place] [phone] PCP - General Family Medicine 01/12/16 Fabricio Lauren [address] [place] [address] Pulmonary Disease 01/06/25 documented as of this encounter
--- OUTSIDE RECORDS SUMMARY | 2025-01-26 10:28 | XMS_ITS | Encounter Summary ---
Author Organization [employer] [facility] Address [address] [facility] 7t [place] [address] Care Team Providers Care Kiln Car Repairer Name Role Phone NameVic MD Primary Care Provider [phone] Fabricio Lauren Unavailable Encounter Details Date Type Department Care Team (Latest Contact Info) Description 11/13/2021 Abstract [facility] CONVERSIONS Dental, Provider, DDS Social History Tobacco [...] 3:15 PM EDT Office Visit [facility] [address] [place] [address] Vic Heredia MD [address] [place] [address] documented as of this encounter Visit Diagnoses Not on filedocumented in this encounter Care Teams Kiln Car Repairer Relationship Specialty Start Date End Date Vic Heredia MD [address] [place] [address] PCP - General Family Medicine 01/12/16 Fabricio Lauren [address] [place] [address] Pulmonary Disease 01/06/25 documented as of this encounter
--- OUTSIDE RECORDS SUMMARY | 2025-01-26 10:28 | XMS_ITS | Encounter Summary ---
Author Organization [employer] Address [address] [facility] 7t [place] [address] Care Team Providers Care Secretary Of Police Name Role Phone Name, Vic RAMOS Primary Care Provider [phone] Fabricio Lauren [phone] Reason for Visit * Reason Onset Date Comments Results 01/13/2025 Encounter Details Date Type Department Care Team ([facility] st Contact Info) Description 01/13/2025 Telephone [facility] [address] [place], [place] [phone] Name, MD Vic [address] [place] [address] Results Social History Tobacco Use Types Packs/Day Years [...] encounter Miscellaneous Notes * Telephone Encounter - Zohra Trujillo RN - 01/14/2025 1:10 PM EST Noted * Telephone Encounter - Vic Heredia MD - 01/14/2025 12:17 PM EST I was able to speak with the patient. She is still coughing. No fevers, no chills, no shortness of breath or chest pain. Prednisone did not help much. Recent x-ray was negative for pneumonia. She did have findings suggestive of chronic interstitial lung disease. She has an appointment next month with pulmonary that she is recommended to keep. * Telephone Encounter - Lucina Mauricio RN - 01/13/2025 3:10 PM EST Images from the original note were not included. TC x 2 placed to pt via S glass block bender (Monie ID#[id number]) to inform of below PCP message. No answer, LVM to call office back and ask to speak to [place] team nurses. MD Lucina Wang, RN Caller: Unspecified (Today, 2:43 PM) Just let her know the X-ray did not show pneumonia, ask her if she has upcoming appt with [facility] (Dr Grant) * Telephone Encounter - Keagan Stewart - 01/13/2025 2:43 PM EST TC from pt requesting call back regarding Results. Type of results: Xray Results Date when done: 01/12/25 Facility: [facility] Contact pt at [phone] documented in this encounter Plan of Treatment Upcoming Encounters Date Type Department Care Team ([facility] st Contact Info) Description 04/27/2025 3:15 PM EDT Office Visit [facility] [address] [place] [address] Name, MD Vic [address] [place] [address] documented as of this encounter Visit Diagnoses Not on filedocumented in this encounter Additional Health Concerns Assessment Noted Time PHQ-9 Depression Total Score: 0 01/13/20 25 2:41 PM EST documented as of this encounter Care Teams Secretary Of Police Relationship Specialty Start Date End Date Name, MD Vic [address] [place] [phone] PCP - General Family Medicine 01/12/16 Fabricio Lauren [address] [place] [phone] Pulmonary Disease 01/06/25 documented as of this encounter
--- OUTSIDE RECORDS SUMMARY | 2025-01-26 10:28 | XMS_ITS | Encounter Summary ---
Author Organization [employer] Address [address] 7t [place] [address] Care Team Providers Care Pastry Chef Name Role Phone Name, Vic RAMOS Primary Care Provider [phone] Fabricio Lauren [phone] Reason for Visit * Reason Comments Med Refill Encounter Details Date Type Department Care Team ([facility] st Contact Info) Description 01/07/2025 Refill [facility] [address] [place] [address] [phone] Name, MD Vic [address] [place] [address] Social History Tobacco Use Types Packs/Day Years [...] Description 04/27/2025 3:15 PM EDT Office Visit [facility] [address] [place] [address] Name, MD Vic [address] [place] [address] documented as of this encounter Visit Diagnoses Not on filedocumented in this encounter Additional Health Concerns Assessment Noted Time PHQ-9 Depression Total Score: 9 01/22/20 24 11:20 AM EDT documented as of this encounter Care Teams Pastry Chef Relationship Specialty Start Date End Date Name, MD Vic [address] [place] [phone] PCP - General Family Medicine 01/12/16 Fabricio Lauren [address] [place] [phone] Pulmonary Disease 01/06/25 documented as of this encounter
== END 2025-01-26 10:25 | disposition home or self-care (01) ==
LOC: HO.HPS 09:33
PROVIDERS: PCP Internal Medicine Geriatric Medicine; Visit Provider Hospitalist
DX: R05.3 Chronic cough (principal); R06.09 Other forms of dyspnea; J40 Bronchitis, not specified as acute or chronic
CPT/HCPCS: 99214

== ENCOUNTER → 2025-01-26 09:32 | Outpatient (BNVA) | payer OTHER, SELFPAY | PROVIDERS: PCP Internal Medicine Geriatric Medicine; Visit Provider Hospitalist | DX: J40 Bronchitis, not specified as acute or chronic (principal); R05.3 Chronic cough; R06.09 Other forms of dyspnea | CPT/HCPCS: 99212 ==

== ENCOUNTER 2025-05-18 13:46 | Outpatient (AMB) | payer OTHER, SELFPAY ==
[2025-05-18 13:48] VITALS: BP 118/64; PULSE 96; O2SAT 96; BMI 40.0
--- NOTE | 2025-05-18 13:48 | MHC.OFFVIS ---
Vital Signs 05/18/25 13:48 Height 4 ft 11 in Weight 198 lb BMI 40.0 BP 118/64 Blood Pressure Location Rt brachial Position Sitting Pulse 96 Pulse Source Pulse Oximeter Pulse Oximetry (%) 96 Oxygen Delivery Method Room Air Intake Visit Reasons: Cough Allergies oxycodone Allergy (Intermediate, Verified 05/18/25 13:52) Nausea and Vomiting aspirin Allergy (Mild, Verified 05/18/25 13:52) Hives lisinopril Allergy (Mild, Verified 05/18/25 13:52) Cough morphine Allergy (Mild, Verified 05/18/25 13:52) Wheezing tramadol Allergy (Mild, Verified 05/18/25 13:52) Unknown HPI Comments Details: The patient is a 70 year woman with a known history of in adrenal adenoma who presents here after developing worsening cough. The patient states that several months ago she developed a viral syndrome. After she continued having a cough. The cough is moderate severity. Was congested in nature with yellow phlegm. She had been evaluated about 4 months ago and she was given antibiotics in addition to respiratory inhalers. Although only partially helpful. In the meantime she did have a chest x-ray which I personally reviewed demonstrating no acute disease. She has not had any pulmonary function studies. She is not aware of any allergies and she does not have any pets. No significant changes in her household. On examination she does have some rhonchi. Specially when she coughs. She does have an about of bronchitis. It may be asthmatic bronchitis or reactive airway disease. Will go start her on maintenance therapy to see if we can improve her symptoms and treat her with doxycycline case she has a smoldering infection. Will have her follow-up in 2-3 months after her PFTs. 09/21/2024 the patient is here for a pulmonary follow-up visit. Overall the patient has been doing okay. She does complaint of worsening cough chest congestion primarily at nighttime. She did not undergo her pulmonary function studies. She sometimes uses the Symbicort but she sometimes gets confused was which is the rescue inhaler in which the maintenance inhaler. At this point will try to maximize her respiratory therapy by switching over to Trelegy therefore be easier for her just to take 1 inhaler in the morning and have complete coverage throughout the day. She can use her rescue inhaler as needed. She needs to have her PFTs rescheduled and will follow-up in 6 months. The patient has any worsening symptoms prior to that she will call for an earlier assessment. 01/26/2025 the patient is here for sick visit. Apparently she was in her usual state health until several weeks ago when she developed the flu. Positive sick contacts in the household. She started developing decreased sense of smell and chest congestion shortness breath. She went to the ER where she was tested positive for the flu and she was given prednisone and some antibiotics. The patient took them but she was not any better. He complained of raspiness of the voice and hoarseness and coughing chest congestion. Moderate severity. Having hard time sleeping. She went back to primary care and she was given additional prednisone. She continues on her Trelegy inhaler. Seems to be helpful. Therefore she can for an evaluation. Seems to have more of a upper airway respiratory issue likely sinusitis resulting in postnasal drip and causing some laryngitis. Her lungs are clear. She did have a chest x-ray on 01/13/2025 which I personally reviewed also demonstrating no evidence of any acute process. Therefore, will go ahead and treat her for sinusitis with Augmentin. She has already been a few courses of prednisone will hold off at this time. She does benefit from a cough suppressant. She will continue with the Trelegy. If the patient is no better she will call for an earlier assessment otherwise will follow-up in 4-6 months. 05/18/2025 the patient is here for pulmonary follow-up visit. Overall the patient has been doing much better. She did take the antibiotics and prednisone during the last visit. She is no longer requiring it. She does have some questions about her inhalers. She has multiple inhalers and she is not sure which 1 she should be taking. We therefore we did rectify her questions by having a just continue to take the Trelegy and I did send her a rescue inhaler. All the other inhalers she can this regard. In the meantime the patient did have a chest x-ray back in 01/13/2025 with some reticular opacities suggesting interstitial disease. Therefore will have her repeat the x-ray during her follow-up visit in about 6-8 months. If he has any issues prior to the next visit she can always call for further recommendations. [facility] Medical History (Updated 08/22/24 @ 23:04 by Fabricio Lauren MD) Dyspnea Chronic cough Adrenal incidentaloma Urticaria History of COVID-19 (~01/22/24) Essential hypertension MICHAEL-inhibitor cough Osteoarthritis of knee Urine incontinence Osteoporosis Low back pain, unspecified Obesity Depression Anxiety Surgical History Hx of total knee arthroplasty (~09/23/23) Social History (Updated 09/21/24 @ 14:11 by Alexus Newberry LPN) Patient Tobacco Use Status: Never used Tobacco Review of Systems Const Denies fever(s) Eyes Reports no additional complaints ENT Reports nasal congestion and Reports nasal discharge Card Denies chest pain, Denies palpitations and Reports dyspnea on exertion Resp Reports cough, Reports dyspnea on exertion and Reports wheezing GI Denies bloating Musc Reports no additional complaints Skin/Breast Denies rash Endo Denies palpitations Jose L/Lymph Denies lymphadenopathy Aller/Immun Reports wheezing Physical Exam Vital Signs: Last Vital Signs Pulse 96 05/18/25 13:48 BP 118/64 05/18/25 13:48 Pulse Ox 96 05/18/25 13:48 Oxygen Delivery Method Room Air 05/18/25 13:48 BMI result Body Mass Index 40.0 Const General: comfortable HEENT Head: Yes normocephalic Neck Neck: Yes supple Chest Chest palpation & inspection: normal inspection of the chest Resp Effort & Inspection: normal respiratory effort Auscultation: no rales, no rhonchi, no wheezes and diminished lung sounds Cardio Heart sounds: S1 normal heart sound present and S2 normal heart sound present GI Palpation (GI): Soft to palpation Skin General skin exam: no rashes or lesions noted Extrem General: Yes no clubbing, cyanosis or edema Assessment & Plan Assessment & Plan (1) Chronic cough: Code(s): R05.3 - Chronic cough Category: Medical (2) Dyspnea: Code(s): R06.00 - Dyspnea, unspecified Category: Medical Qualifiers: Dyspnea type: dyspnea on exertion Qualified Code(s): R06.09 - Other forms of dyspnea Plan Trelegy 200 VANIA as needed CXR F/U 6-8 months Orders: Orders XR chest 2V Today R06.09 - Other forms of dyspnea Medications: Changed From albuterol sulfate 90 mcg/actuation 2 inhalations inhalation Q4H PRN To albuterol sulfate 90 mcg/actuation 2 inhalations inhalation Q4H PRN 1 ea 12RF shortness of breath or wheezing 30 days Refilled [id number]-[id number]-[id number] 200-62.5-25 mcg (Trelegy Ellipta) 1 inh inhalation DAILY 60 ea 12RF 30 days Coding Level of Care Code Est Pt Level 4 (19709) Diagnoses Chronic cough R05.3 Dyspnea on exertion R06.09 Dyspnea type: dyspnea on exertion
--- OUTSIDE RECORDS SUMMARY | 2025-05-18 14:35 | XMS_ITS | Encounter Summary ---
Author Organization [employer] [facility] Address [address] [place] [address] 7[address] [place] [address] Care Team Providers Care Swedger Name Role Phone Name, Vic RAMOS Primary Care Provider [phone] Fabricio Lauren Unavailable [phone] Encounter Details Date Type Department Care Team (Latest Contact Info) Description 11/13/2021 Abstract [facility] CONVERSIONS Dental, Provider, DDS Social History Tobacco Use Types Packs/Day Years Used Date Smoking Tobacco: Never Assessed Comments Unknown Sex and Gender Information Value Date Recorded Sex Assigned at Female 09/10/2022 10:23 AM EDT Legal Sex Female 10:23 AM EDT Gender Identity Female 09/10/2022 10:23 AM EDT Sexual Orientation Straight 09/10/2022 10 :23 AM EDT documented as of this encounter Plan of Treatment Not on file documented as of this encounter Visit Diagnoses Not on filedocumented in this encounter Care Teams Swedger Relationship Specialty Start Date End Date Name, MD Vic [address] [place] [phone] PCP - General Family Medicine 01/12/16 Fabricio Lauren [address] [place] [address] [phone] Pulmonary Disease 01/06/25 documented as of this encounter
--- OUTSIDE RECORDS SUMMARY | 2025-05-18 14:35 | XMS_ITS | Clinical Summary ---
Author Organization [facility] Address [address] [place] [address] Care Team Providers Care Cane Cutter Name Role Phone Unavailable Primary Care Provider [...] 2023-2 5 season) 2024 Influenza Vaccine (#1) 2025 5, 08/13/2013, 07/23/2011 RSV Immunization Adult Patients (1 - 1-dose 75+ series) 2030 HIB [...] age to complete this topic Meningococcal B Vaccine Aged Out No l onger eligible based on patient's age to complete [...] reviewed with CAD and compared to previous. The breasts are composed of fatty and fibroglandular tissue. No suspicious mass, architectural distortion or suspicious calcifications [...] % Breast cancer risk category Low (<15%) us Lotus Noriega MD IMG XR PROCEDURES Final Result from Last 3 Months or Most Recently Relevant to Health Maintenance
== END 2025-05-18 14:09 | disposition home or self-care (01) ==
LOC: HO.HPS 13:46
PROVIDERS: PCP Internal Medicine Geriatric Medicine; Visit Provider Hospitalist
DX: R05.3 Chronic cough (principal); R06.09 Other forms of dyspnea
CPT/HCPCS: 99214

== ENCOUNTER → 2025-05-18 13:46 | Outpatient (BNVA) | payer OTHER, SELFPAY | PROVIDERS: PCP Internal Medicine Geriatric Medicine; Visit Provider Hospitalist | DX: R05.3 Chronic cough (principal); R06.09 Other forms of dyspnea | CPT/HCPCS: 99212 ==